=== PATIENT | female | born 1960 | race Caucasian/White ===

== ENCOUNTER → 2018-09-06 | Outpatient (CLI) | payer BC ==
--- NOTE | 2018-09-06 15:09 | Diagnostic Imaging Report ---
INDICATION: Left wrist pain and injury. TIME OF EXAM 2:42 PM FINDINGS: Three views of the left wrist were obtained. The distal radius and ulna are intact. The carpus is intact. Metacarpals are unremarkable. No fractures are seen. IMPRESSION: No acute bony abnormality is detected. Dictated by: Dictated on workstation # [id number]
== END ==
LOC: RAD FS 14:40
PROVIDERS: ATTEND Nurse Practitioner
DX: S69.92XA Unspecified injury of left wrist, hand and finger(s), initial encounter (principal)
CPT/HCPCS: 73110

== ENCOUNTER → 2018-09-20 | Outpatient (CLI) | payer BC ==
--- NOTE | 2018-09-20 09:09 | Diagnostic Imaging Report ---
Indication: Fall and wrist pain. Time of exam: 8:47 AM Comparison: 09/06/2018. Three views of the left wrist were obtained. Distal radius is intact. There is a small lucency at the ulnar styloid, indeterminate. This could conceivably represent a healing fracture. Correlation to pain on the ulnar side of the wrist is recommended. By history it states patient has lateral wrist pain which would be the radius side of the wrist. The carpus appears intact. There are some mild degenerative changes at the triscaphe and first CMC joints. Metacarpals are intact. Impression: Questionable lucency at the ulnar styloid which could represent a healing fracture. There is no displacement. Correlation of pain on the ulnar side it is recommended. Dictated by: Dictated on workstation # [id number]
== END ==
LOC: RAD FS 08:44
PROVIDERS: ATTEND Nurse Practitioner
DX: M25.532 Pain in left wrist (principal); W19.XXXA Unspecified fall, initial encounter
CPT/HCPCS: 73110

== ENCOUNTER → 2019-08-04 | Outpatient (CLI) | payer BC ==
--- NOTE | 2019-08-04 16:02 | Diagnostic Imaging Report ---
EXAMINATION: Chest 2 view HISTORY: Cough. Wheezing. COMPARISON: None available. FINDINGS: The lung volumes are normal. No focal consolidation is seen. Mild bronchial thickening is seen in the perihilar regions. No large pleural effusion or pneumothorax is seen. The cardiomediastinal silhouette is normal in size and contour. No acute osseous abnormality is seen. IMPRESSION: 1. Mild bronchial wall thickening, which can be seen with bronchitis/bronchiolitis. No focal consolidations. Dictated by: Dictated on workstation # [id number]
== END ==
LOC: RAD FS 15:40
PROVIDERS: ATTEND Nurse Practitioner Family
DX: R05 Cough (principal); R06.2 Wheezing
CPT/HCPCS: 71046

== ENCOUNTER → 2020-06-28 | Outpatient (CLI) | payer BC ==
--- NOTE | 2020-06-28 16:32 | Diagnostic Imaging Report ---
INDICATION: Left wrist pain AP, oblique, and lateral views of the left wrist are obtained. COMPARISON is made to 09/20/2018 No acute fracture or acute bony abnormality seen. There is some irregularity of the ulnar styloid which appears chronic compared to the prior study. IMPRESSION: Chronic irregularity of ulnar styloid similar to the prior study of 09/20/2018. No acute process visualized. Dictated by: Dictated on workstation # [id number]
== END ==
LOC: RAD FS 10:13
PROVIDERS: ATTEND Nurse Practitioner
DX: M25.832 Other specified joint disorders, left wrist (principal)
CPT/HCPCS: 73110

== ENCOUNTER → 2020-07-04 | Outpatient (CLI) | payer BC ==
[~2020-07-04] VITALS: Ht 160 cm; Wt 96.8 kg
[~2020-07-04] MED LIST: CATHETER FLUSH 10 ML SYR IV PRN; GADOBUTROL 7.5 MMOL/7.5 ML (GADAVIST) VIAL IV ONE; IOHEXOL 300 MG/ML 50 ML (OMNIPAQUE 300) VIAL IV ONE
--- NOTE | 2020-07-04 11:29 | Diagnostic Imaging Report ---
Left wrist arthrogram INDICATION: Wrist pain Following aseptic preparation skin and administration of local anesthesia a 25-gauge needle was advanced into the radiocarpal joint. Approximately 3 mL of a mixture of sodium chloride Omnipaque 300 and Gadavist was infused. The patient tolerated procedure well and was sent to the MR suite in good condition. IMPRESSION: There has been successful injection of the radiocarpal joint. MRI is pending for further study. Dictated by: Dictated on workstation # [id number]
--- NOTE | 2020-07-04 12:19 | Diagnostic Imaging Report ---
PROCEDURE: MRI left joint upper extremity with contrast. TECHNIQUE: Multiplanar, multisequence contrast-enhanced MRI of the left upper extremity was accomplished. INDICATION: Wrist pain. COMPARISON: There are no prior MRI examinations available for comparison. The plain film examination of the left wrist performed on 06/28/2020 failed to show any sign of an acute bony abnormality. There was chronic irregularity of the ulnar styloid. FINDINGS: On the coronal STIR series of this exam, there does appear to be cystic degeneration of the ulnar styloid. I suspect that this is due to degenerative disease. There is also edema/inflammation of the soft tissues in this area and along the medial aspect of the triangular fibrocartilage. For the most part, the triangular fibrocartilage seems to be intact; however, the medial margin is irregular and this does suggest a small partial tear. There is also some fluid/contrast within the distal radioulnar joint and this is indirect evidence that there is a partial tear of the triangular fibrocartilage as well. There is also edema/inflammation of the extensive carpi ulnaris tendon as it courses past the ulnar styloid. There is a vague area of altered signal within the tendon belly itself in this region. This may represent edema/inflammation or perhaps a long-standing partial tear of the tendon. The scapholunate ligament seems to be intact. There is no abnormal signal arising from the osseous structures to suggest bone edema or fracture. There is no sign of avascular necrosis either. There are small cysts within the lunate and capitate bones. These are most likely degenerative in nature. There is also a small 3.5 mm cyst near the medial articulation of the hamate bone and the triquetrum. This could represent a small ganglion cyst. The other major ligaments and tendons are intact. IMPRESSION: 1. There is edema/inflammation of the soft tissues along the medial aspect of the wrist. There also appears to be a small partial tear of the triangular fibrocartilage. The area of abnormal signal within the extensor carpi ulnaris tendon also suggests either prior trauma or a partial tear. Cystic degeneration of the ulnar styloid is noted as well. 2. There is no acute bony abnormality appreciated. 3. There is question of a small ganglion cyst near the medial articulation of the triquetrum and hamate bone. Dictated by: Dictated on workstation # [id number]
== END ==
LOC: RAD 09:45
PROVIDERS: ATTEND Nurse Practitioner
DX: S63.592D Other specified sprain of left wrist, subsequent encounter (principal); X58.XXXD Exposure to other specified factors, subsequent encounter
CPT/HCPCS: 25246; 73115; 73222

== ENCOUNTER → 2020-10-18 | Outpatient (CLI) | payer BC ==
--- NOTE | 2020-10-18 15:31 | Diagnostic Imaging Report ---
INDICATION: Right thumb pain. COMPARISON: None. FINDINGS: Three views of the right thumb were obtained and show no fractures, dislocations, or other acute bony abnormalities. Joint spaces are well maintained throughout. The soft tissues appear unremarkable. No radiopaque foreign bodies are identified. IMPRESSION: Unremarkable radiographic exam of the right thumb. Dictated by: Dictated on workstation # [id number]
== END ==
LOC: RAD FS 15:12
PROVIDERS: ATTEND Nurse Practitioner
DX: M79.644 Pain in right finger(s) (principal)
CPT/HCPCS: 73140

== ENCOUNTER 2021-01-04 13:51 | Emergency (ER) | payer BC ==
[~2021-01-04] VITALS: Ht 155 cm; Wt 95.0 kg
[2021-01-04] MEDS ORDERED: LORazepam INJ 2 MG/ML (ATIVAN) VIAL IVP STA ×2 (14:13→15:55)
[2021-01-04] MEDS ORDERED: RX-ALBUTEROL INHALER (VENTOLIN HFA) 18 GM IH PRN (14:15)
[2021-01-04] MEDS ORDERED: NS IV 1000 ML 1,000 ML IV SCH (14:15)
--- NOTE | 2021-01-04 14:21 | ED General ---
General Chief Complaint: Respiratory Problems Stated Complaint: SOB; COUGH; COVID+ Source of Information: Patient History of Present Illness Date Seen by Provider: Jan 04, 2021 Time Seen by Provider: 13:56 Initial Comments 60-year-old female presenting from home due to increased cough and shortness of breath. She is feeling dizzy and lightheaded. She states that she was diagnosed with Covid a week ago. On Thursday she was started on a Z-Henrik and steroids. She has been having diarrhea as well. Today she started feeling dizzy and lightheaded. She is anxious and coughing. She becomes more panicked when she starts to cough. She does not bring anything up when she does cough. She gets easily choked when she coughs. She has been running a fever up to 102 Fahrenheit per patient report. Her last temperature at that level was yesterday. She has not been taking anything to loosen her cough or thin it out. She states she is not monitoring her sugars. She denies any burning or pain w ith urination. Associated Systoms: Cough; No Diaphoresis; Fever/Chills, Malaise; No Nausea/Vomiting, No Seizure; Shortness of Air, Weakness Allergies and Home Medications Allergies Coded Allergies: No Allergy Information Available (Unverified , 07/04/20) Patient Home Medication List Home Medication List Reviewed: Yes Review of Systems Review of Systems Constitutional: chills, dizziness, fever, malaise, weakness EENTM: nose congestion Respiratory: cough; No hemoptysis; short of breath, wheezing Cardiovascular: No palpitations Gastrointestinal: diarrhea; No nausea, No vomiting Genitourinary: No dysuria Musculoskeletal: other (generalized body aches) Skin: no symptoms reported Psychiatric/Neurological: Anxiety Hematologic/Lymphatic: Denies Blood Clots Past Wzntfcb-Ulrefr-Ejlwto Hx Patient Social History Tobacco Use?: No Use of E-Cig and/or Vaping dev: No Substance use?: No Alcohol Use?: No Pt feels they are or have been: No Past Medical History Surgery/Hospitalization HX: diabetic Surgeries: No Respiratory: No Cardiac: No Neurological: No Genitourinary: No Gastrointestinal: No Musculoskeletal: No Endocrine: Yes Diabetes, Non-Insulin dep Physical Exam Vital Signs Vital Signs - First Documented 01/04/21 13:55 Temp 36.4 Pulse 103 Resp 20 B/P (MAP) 192/90 (124) Pulse Ox 100 O2 Delivery Room Air Capillary Refill : Height, Weight, BMI Height: '" Weight: lbs. oz. kg; 37.81 BMI Method: General Appearance: Anxious, Obese HEENT: PERRL/EOMI, Pharynx Normal Neck: Full Range of Motion, Normal Inspection, Non Tender, Supple Respiratory: No Accessory Muscle Use, No Respiratory Distress, Decreased Breath Sounds, Wheezing Cardiovascular: Regular Rate, Rhythm, Normal Peripheral Pulses Gastrointestinal: Normal Bowel Sounds, No Pulsatile Mass, Non Tender, Soft Rectal: Deferred Extremity: Normal Capillary Refill, Normal Inspection, No Pedal Edema Neurologic/Psychiatric: Alert, Oriented x3, Other (anxious) Skin: Normal Color, Warm/Dry Focused Exam Lactate Level 01/04/21 14:00: Lactic Acid Level 1.99 Lactic Acid Level Laboratory Tests Test 01/04/21 14:00 Lactic Acid Level 1.99 MMOL/L (0.50-2.00) Progress/Results/Core Measures Suspected Sepsis SIRS Temperature: Pulse: Respiratory Rate: Laboratory Tests 01/04/21 14:00: White Blood Count 4.0L Blood Pressure / Mean: 01/04/21 14:00: Lactic Acid Level 1.99 Laboratory Tests 01/04/21 14:00: Creatinine 0.60, INR Comment 0.9, Platelet Count 153, Total Bilirubin 0.3 Results/Orders Lab Results Laboratory Tests Test 01/04/21 14:00 01/04/21 14:34 01/04/21 15:46 01/04/21 17:04 Range/Units White Blood Count 4.0 L 4.3-11.0 10^3/uL Red Blood Count 4.42 4.35-5.85 10^6/uL Hemoglobin 13.0 11.5-16.0 G/DL Hematocrit 40 35-52 % Mean Corpuscular Volume 90 80-99 FL Mean Corpuscular Hemoglobin 29 25-34 PG Mean Corpuscular Hemoglobin Concent 33 32-36 G/DL Red Cell Distribution Width 12.8 10.0-14.5 % Platelet Count 153 130-400 10^3/uL Mean Platelet Volume 10.8 H 7.4-10.4 FL Immature Granulocyte % (Auto) 1 % Neutrophils (%) (Auto) 78 H 42-75 % Lymphocytes (%) (Auto) 18 12-44 % Monocytes (%) (Auto) 4 0-12 % Eosinophils (%) (Auto) 0 0-10 % Basophils (%) (Auto) 0 0-10 % Neutrophils # (Auto) 3.1 1.8-7.8 X 10^3 Lymphocytes # (Auto) 0.7 L 1.0-4.0 X 10^3 Monocytes # (Auto) 0.1 0.0-1.0 X 10^3 Eosinophils # (Auto) 0.0 0.0-0.3 10^3/uL Basophils # (Auto) 0.0 0.0-0.1 10^3/uL Immature Granulocyte # (Auto) 0.0 0.0-0.1 10^3/uL Neutrophils % (Manual) 79 % Lymphocytes % (Manual) 8 % Monocytes % (Manual) 2 % Band Neutrophils 4 % Atypical Lymphocytes 7 % Blood Morphology Comment NORMAL Prothrombin Time 12.2 12.2-14.7 SEC INR Comment 0.9 0.8-1.4 Activated Partial Thromboplast Time 24 24-35 SEC D-Dimer 1.38 H 0.00-0.49 UG/ML Sodium Level 139 135-145 MMOL/L Potassium Level 4.1 3.6-5.0 MMOL/L Chloride Level 103 98-107 MMOL/L Carbon Dioxide Level 23 21-32 MMOL/L Anion Gap 13 5-14 MMOL/L Blood Urea Nitrogen 16 7-18 MG/DL Creatinine 0.60 0.60-1.30 MG/DL Estimat Glomerular Filtration Rate > 60 BUN/Creatinine Ratio 27 Glucose Level 479 *H 70-105 MG/DL Lactic Acid Level 1.99 0.50-2.00 MMOL/L Calcium Level 8.7 8.5-10.1 MG/DL Corrected Calcium 8.9 8.5-10.1 MG/DL Total Bilirubin 0.3 0.1-1.0 MG/DL Aspartate Amino Transf (AST/SGOT) 34 5-34 U/L Alanine Aminotransferase (ALT/SGPT) 12 0-55 U/L Alkaline Phosphatase 73 40-136 U/L Troponin I < 0.30 <0.30 NG/ML C-Reactive Protein 5.23 H <0.50 MG/DL Total Protein 7.5 6.4-8.2 GM/DL Albumin 3.7 3.2-4.5 GM/DL Blood Gas Puncture Site RT RAD Blood Gas Patient Temperature UNK Arterial Blood pH 7.45 H 7.37-7.43 Arterial Blood Partial Pressure CO2 39 35-45 MMHG Arterial Blood Partial Pressure O2 61 L 79-93 MMHG Arterial Blood HCO3 27 23-27 MMOL/L Arterial Blood Total CO2 28.3 21.0-31.0 MMOL/L Arterial Blood Oxygen Saturation 92 L 94-100 % Arterial Blood Base Excess 3.0 H -2.5-2.5 MMOL/L Prabhjot Test YES-POS Blood Gas Ventilator Setting NO Blood Gas Inspired Oxygen ROOM AIR Urine Color YELLOW Urine Clarity SLT CLOUDY Urine pH 6.0 5-9 Urine Specific [place] 1.010 L 1.016-1.022 Urine Protein 1+ H NEGATIVE Urine Glucose (UA) 3+ H NEGATIVE Urine Ketones TRACE H NEGATIVE Urine Nitrite POSITIVE H NEGATIVE Urine Bilirubin NEGATIVE NEGATIVE Urine Urobilinogen 0.2 < = 1.0 MG/DL Urine Leukocyte Esterase NEGATIVE NEGATIVE Urine RBC (Auto) TRACE H NEGATIVE Urine RBC NONE /HPF Urine WBC 5-10 H /HPF Urine Squamous Epithelial Cells 0-2 /HPF Urine Crystals NONE /LPF Urine Bacteria LARGE H /HPF Urine Casts NONE /LPF Urine Mucus NEGATIVE /LPF Urine Culture Indicated YES Glucometer 260 H 70-110 MG/DL My Orders Orders - SORIN DELGADO MD Monitor-Rhythm Ecg Trace Only (01/04/21 14:10) Ed Iv/Invasive Line Start (01/04/21 14:10) Cbc With Automated Diff (01/04/21 14:10) Comprehensive Metabolic Panel (01/04/21 14:10) Crp Fs (01/04/21 14:10) Troponin I Fs (01/04/21 14:10) Protime With Inr (01/04/21 14:10) Partial Thromboplastin Time (01/04/21 14:10) Ekg Tracing (01/04/21 14:10) Arterial Blood Gas (01/04/21 14:10) Ns Iv 1000 Ml (Sodium Chloride 0.9%) (01/04/21 14:15) Fibrin Degradation Products (01/04/21 14:10) Blood Culture (01/04/21 14:10) Lactic Acid Analyzer (01/04/21 14:10) Rx-Albuterol Inhaler (Rx-Ventolin Hfa) (01/04/21 14:15) Chest 1 View Ap/Pa Only (01/04/21 14:13) Lorazepam Injection (Ativan Injection) (01/04/21 14:13) Ua Culture If Indicated (01/04/21 14:42) Manual Differential (01/04/21 14:00) Iohexol Injection (Omnipaque 350 Mg/Ml 1 (01/04/21 15:15) Received Contrast (Hold Metformin- Contr (01/04/21 15:15) Sodium Chloride Flush (Catheter Flush Sy (01/04/21 15:15) Ns (Ivpb) (Sodium Chloride 0.9% Ivpb Bag (01/04/21 15:15) Ct Angio Chest W (01/04/21 15:30) Ns Iv 1000 Ml (Sodium Chloride 0.9%) (01/04/21 15:30) Insulin (Regular) Human (Novolin R (Per (01/04/21 15:30) Lorazepam Injection (Ativan Injection) (01/04/21 15:55) Lorazepam Injection (Ativan Injection) (01/04/21 15:57) Urine Culture (01/04/21 15:46) Nursing Communication (Order) (01/04/21 16:06) Medications Given in ED Current Medications Medications Dose Ordered Sig/Jeannie Route Start Time Stop Time Status Last Admin Dose Admin Albuterol Sulfate 2 PUFFS IH Q4H PRN wheezing RTQ4HR PRN IH 01/04/21 14:15 01/04/21 17:07 DC 01/04/21 14:25 1 GM Iohexol 125 ml ONCE ONCE IV 01/04/21 15:15 01/04/21 15:16 DC 01/04/21 16:15 125 ML Sodium Chloride 10 ml NEEDED PRN IV 01/04/21 15:15 01/04/21 17:07 DC 01/04/21 16:15 10 ML Sodium Chloride 100 ml ONCE ONCE IV 01/04/21 15:15 01/04/21 15:16 DC 01/04/21 16:15 100 ML Vital Signs/I&O 01/04/21 01/04/21 13:55 17:06 Temp 36.4 36.4 Pulse 103 82 Resp 20 16 B/P (MAP) 192/90 (124) 162/76 Pulse Ox 100 100 O2 Delivery Room Air Room Air Capillary Refill : Progress Note #1: Progress Note check labs, CXR, ECG, ABG, blood cultures with lactic acid. Patient seems very anxious so will give Ativan 1 mg IV. NS 1 Liter bolus for hydration. try albuterol inhaler for cough/shortness of breath Progress Note #2: Progress Note Labs appear stable without acute significant anomaly other than high glucose and CRP with elevated D-dimer. Her pain is improved with treatment here in the ED. Her chest x-ray shows lateral changes suggestive of COVID-19. Her oxygen saturation continues to be 99-100% on room air. Advised patient that with the D-dimer slightly elevated will perform a CT angiogram to evaluate for pulmonary embolism or worsening Covid signs not seen on the plain film. Progress Note #3: Progress Note Patient's glucose improved after fluids and insulin. Her IV did infiltrate when flushing with saline after the CT angiogram. The CT chest did not demonstrate any definite pulmonary embolism but she did have diffuse infiltrates and inflammation secondary to Covid. Patient is taking azithromycin which would treat for pneumonia or atypical bacterial source. Will add on Mucinex and the albuterol inhaler with spacer. Counseled to follow-up with clinic and check back with ER or hospital if worsening symptoms. Advised for her Diarrhea she could take Imodium if needed to slow it down, otherwise use fiber to bulk her stools and make sure she is drinking fluid enough to stay hydrated from her fluid loss due to diarrhea. ECG Initial ECG Impression Date: Jan 04, 2021 Initial ECG Impression Time: 14:38 Initial ECG Rate: 87 Initial ECG Rhythm: Normal Sinus Initial ECG Comparisson: No Previous ECG Available Comment Normal sinus rhythm with a heart rate of 87 bpm. PA interval 130 ms. Left anterior fascicular block. No acute ST elevation. There is some baseline wander. QT interval 374 ms with a QTc interval 450 ms. There is no prior tr acing available for comparison. Diagnostic Imaging Diagonstic Imaging: Xray Plain Films/CT/US/NM/MRI: chest Comments NAME: MANGO RENAE [facility] REC#: [id number] PT STATUS: REG ER : 1960 PHYSICIAN: SORIN DELGADO MD ADMIT DATE: 01/04/21/ER FS Draft Date of Exam:01/04/21 CT ANGIO CHEST W PROCEDURE: CT angiography of the chest with contrast. TECHNIQUE: Multiple contiguous axial images were obtained through the chest after uneventful bolus administration of intravenous contrast. 3D reconstructed CTA MIP acquisitions were also performed. Auto Exposure Controls were utilized during the CT exam to meet ALARA standards for radiation dose reduction. DATE: January 04, 2021. COMPARISON: Chest radiograph January 04, 2021. INDICATION: 60-year-old female, cough and shortness of breath. FINDINGS: There is multifocal patchy bilateral lung consolidation with additional areas of predominantly linear opacification. There is no identified pulmonary nodule. There is no lung mass. There is no pneumothorax. There is no pleural effusion. There is no identified pulmonary embolus. There are motion limitations of the study. The heart is not enlarged. There is no pericardial effusion. There is no identified abnormally enlarged mediastinal, hilar or axillary lymph node meeting CT size criteria for adenopathy. The patient is status post cholecystectomy. There is no identified acute bony abnormality. There is a benign vertebral body hemangioma at the level of T10. IMPRESSION: CT chest: 1. Multifocal patchy bilateral lung consolidation which would be most consistent with provided history of Covid 19 infection and multifocal pneumonia/pneumonitis. There are likely components of atelectasis present. 2. No identified pulmonary embolus and motion limited assessment. Dictated on workstation # [id number] Dict: 01/04/21 1621 Trans: 01/04/21 1635 [facility] [id number] Interpreted by: ALEK MOORE MD Electronically signed by: Diagonstic Imaging: CT Plain Films/CT/US/NM/MRI: chest Comments NAME: MANGO RENAE [facility] REC#: [id number] PT STATUS: REG ER : 1960 PHYSICIAN: SORIN DELGADO MD ADMIT DATE: 01/04/21/ER FS Draft Date of Exam:01/04/21 CT ANGIO CHEST W PROCEDURE: CT angiography of the chest with contrast. TECHNIQUE: Multiple contiguous axial images were obtained through the chest after uneventful bolus administration of intravenous contrast. 3D reconstructed CTA MIP acquisitions were also performed. Auto Exposure Controls were utilized during the CT exam to meet ALARA standards for radiation dose reduction. DATE: January 04, 2021. COMPARISON: Chest radiograph January 04, 2021. INDICATION: 60-year-old female, cough and shortness of breath. FINDINGS: There is multifocal patchy bilateral lung consolidation with additional areas of predominantly linear opacification. There is no identified pulmonary nodule. There is no lung mass. There is no pneumothorax. There is no pleural effusion. There is no identified pulmonary embolus. There are motion limitations of the study. The heart is not enlarged. There is no pericardial effusion. There is no identified abnormally enlarged mediastinal, hilar or axillary lymph node meeting CT size criteria for adenopathy. The patient is status post cholecystectomy. There is no identified acute bony abnormality. There is a benign vertebral body hemangioma at the level of T10. IMPRESSION: CT chest: 1. Multifocal patchy bilateral lung consolidation which would be most consistent with provided history of Covid 19 infection and multifocal pneumonia/pneumonitis. There are likely components of atelectasis present. 2. No identified pulmonary embolus and motion limited assessment. Dictated on workstation # [id number] Dict: 01/04/21 1621 Trans: 01/04/21 1635 [facility] [id number] Interpreted by: ALEK MOORE MD Electronically signed by: Departure Impression Primary Impression: Respiratory tract infection due to 2019 novel coronavirus Additional Impressions: Steroid-induced hyperglycemia Cough in adult Diarrhea Qualified Codes: R19.7 - Diarrhea, unspecified Disposition: 01 HOME, SELF-CARE Condition: Stable Departure-Patient Inst. Decision time for Depature: 16:55 Referrals: LEONEL PARK MD (PCP/Family) Primary Care Physician Patient Instructions: COVID-19 (DC), Cough, Adult ED, High Blood Sugar, Adult ED, How to Use a Metered Dose Inhaler ED, How to Use a Spacer, Recovery After COVID-19 Add. Discharge Instructions: Stay well hydrated and drink plenty of fluids Use Mucinex to help loosen and thin out your mucus and secretions. Use spacer with inhaler to take 2 puffs every 4 hours as needed for cough and shortness of breath. Watch your diet and sugars as they will run higher while on steroid and fighting infection. All discharge instructions reviewed with patient and/or family. Voiced understanding. SORIN DELGADO MD Jan 04, 2021 14:21
--- NOTE | 2021-01-04 14:37 | Diagnostic Imaging Report ---
EXAMINATION: Chest 1 view HISTORY: Shortness of breath, COVID 19 COMPARISON: None available. FINDINGS: Vague airspace opacities in the left base. No pleural effusion or pneumothorax. Heart size is normal. IMPRESSION: 1. Vague airspace opacity left base which may be related to COVID 19 pneumonia. Dictated by: Dictated on workstation # [id number]
[2021-01-04 14:40] LABS: ABG OXYGEN SATURATION 92 % (94-100); ABG PCO2 39 MMHG (35-45); ABG PH 7.45 (7.37-7.43); ABG PO2 61 MMHG (79-93); ABG TCO2 28.3 MMOL/L (21.0-31.0)
[2021-01-04 14:41] LABS: ALLENS TEST YES-POS; INSPIRED O2 ROOM AIR; VENTILATOR NO
[2021-01-04 14:42] LABS: INR 0.9 (0.8-1.4); PROTHROMBIN TIME PATIENT 12.2 SEC (12.2-14.7)
[2021-01-04 14:43] LABS: BASOPHILS % (AUTO) 0 % (0-10); EOSINOPHILS % (AUTO) 0 % (0-10); HEMATOCRIT 40 % (35-52); LYMPHOCYTES # (AUTO) 0.7 X 10^3 (1.0-4.0); LYMPHOCYTES % (AUTO) 18 % (12-44); MEAN CORPUSCULAR HEMOGLOBIN 29 PG (25-34); MEAN CORPUSCULAR HGB CONC 33 G/DL (32-36); MEAN CORPUSCULAR VOLUME 90 FL (80-99); MEAN PLATELET VOLUME 10.8 FL (7.4-10.4); MONOCYTES # (AUTO) 0.1 X 10^3 (0.0-1.0); MONOCYTES % (AUTO) 4 % (0-12); NEUTROPHILS # (AUTO) 3.1 X 10^3 (1.8-7.8); NEUTROPHILS % (AUTO) 78 % (42-75); PLATELET COUNT 153 10^3/uL (130-400)
[2021-01-04 14:45] LABS: CHLORIDE 103 MMOL/L (98-107); POTASSIUM 4.1 MMOL/L (3.6-5.0); SODIUM 139 MMOL/L (135-145)
[2021-01-04 14:46] LABS: ALANINE AMINOTRANSFERASE 12 U/L (0-55); ALBUMIN 3.7 GM/DL (3.2-4.5); ALKALINE PHOSPHATASE 73 U/L (40-136); BILIRUBIN,TOTAL 0.3 MG/DL (0.1-1.0); BUN/CREATININE RATIO 27; CALCIUM 8.7 MG/DL (8.5-10.1); CARBON DIOXIDE 23 MMOL/L (21-32); GFR ESTIMATED > 60; TOTAL PROTEIN 7.5 GM/DL (6.4-8.2)
[2021-01-04 14:47] LABS: GLUCOSE 479 MG/DL (70-105)
[2021-01-04 15:10] LABS: BAND NEUTROPHILS 4 %; LYMPHOCYTES % (MANUAL) 8 %; MONOCYTES % (MANUAL) 2 %; NEUTROPHILS % (MANUAL) 79 %
[2021-01-04 15:11] LABS: ATYPICAL LYMPHOCYTES 7 %; RBC MORPH NORMAL
[2021-01-04] MEDS ORDERED: IOHEXOL 350 MG/ML 150 ML (OMNIPAQUE 350) VIAL IV ONE (15:15)
[2021-01-04] MEDS ORDERED: CATHETER FLUSH 10 ML SYR IV PRN (15:15)
[2021-01-04] MEDS ORDERED: NS 100 ML (IVPB) BAG IV ONE (15:15)
[2021-01-04] MEDS ORDERED: HOLD METFORMIN - RECEIVED CONTRAST 20 ML VIAL IV SCH (15:15)
[2021-01-04] MEDS ORDERED: NS IV 1000 ML 1,000 ML IV STA (15:30)
[2021-01-04] MEDS ORDERED: inSUlin (REGULAR) HUMAN 1 UNIT/0.01 ML (CHARGE PER UNIT) IV STA (15:30)
[2021-01-04] MEDS ORDERED: LORazepam INJ 2 MG/ML (ATIVAN) VIAL ONE (15:57)
[2021-01-04 16:00] LABS: COLOR,URINE YELLOW
[2021-01-04 16:01] LABS: BACTERIA,URINE LARGE /HPF; BILIRUBIN,URINE NEGATIVE (NEGATIVE); CLARITY,URINE SLT CLOUDY; GLUCOSE, URINE (UA) 3+ (NEGATIVE); KETONES,URINE TRACE (NEGATIVE); LEUKOCYTE ESTERASE ,URINE NEGATIVE (NEGATIVE); NITRITE,URINE POSITIVE (NEGATIVE); PROTEIN,URINE 1+ (NEGATIVE); SQUAMOUS EPITHELIAL CELL,UR 0-2 /HPF
--- NOTE | 2021-01-04 16:36 | Diagnostic Imaging Report ---
PROCEDURE: CT angiography of the chest with contrast. TECHNIQUE: Multiple contiguous axial images were obtained through the chest after uneventful bolus administration of intravenous contrast. 3D reconstructed CTA MIP acquisitions were also performed. Auto Exposure Controls were utilized during the CT exam to meet ALARA standards for radiation dose reduction. DATE: January 04, 2021. COMPARISON: Chest radiograph January 04, 2021. INDICATION: 60-year-old female, cough and shortness of breath. FINDINGS: There is multifocal patchy bilateral lung consolidation with additional areas of predominantly linear opacification. There is no identified pulmonary nodule. There is no lung mass. There is no pneumothorax. There is no pleural effusion. There is no identified pulmonary embolus. There are motion limitations of the study. The heart is not enlarged. There is no pericardial effusion. There is no identified abnormally enlarged mediastinal, hilar or axillary lymph node meeting CT size criteria for adenopathy. The patient is status post cholecystectomy. There is no identified acute bony abnormality. There is a benign vertebral body hemangioma at the level of T10. IMPRESSION: CT chest: 1. Multifocal patchy bilateral lung consolidation which would be most consistent with provided history of Covid 19 infection and multifocal pneumonia/pneumonitis. There are likely components of atelectasis present. 2. No identified pulmonary embolus and motion limited assessment. Dictated by: Dictated on workstation # [id number]
[2021-01-04 17:06] VITALS: BP 162/76
== END 2021-01-04 17:07 | disposition home or self-care (01) ==
LOC: EDUNIT# 13:51 → ER FS 13:54
DX: U07.1 COVID-19 (principal); T38.0X5A Adverse effect of glucocorticoids and synthetic analogues, initial encounter; E09.65 Drug or chemical induced diabetes mellitus with hyperglycemia; R79.1 Abnormal coagulation profile; R79.82 Elevated C-reactive protein (CRP); E66.9 Obesity, unspecified; Z68.37 Body mass index [BMI] 37.0-37.9, adult; Z73.0 Burn-out
CPT/HCPCS: 36415; 71045; 71275; 80053; 81000; 82805; 82947; 83605; 84484; 85007; 85027; 85379; 85610; 85730; 86141; 87040; 87077; 87088; 87186; 93005; 93041; 94640

== ENCOUNTER 2021-01-06 19:56 | Inpatient (IN) | payer BC ==
[~2021-01-06] VITALS: Ht 160 cm; Wt 107.3 kg
--- NOTE | 2021-01-06 20:35 | ED General ---
General Chief Complaint: Respiratory Problems Stated Complaint: SOB Nursing Triage Note: Pt tested positive for Covid 10 days ago and was seen 2 days ago for sob. Pt was discharged home on Thursday. Pt returns tonight with increased shortness of breath and chest pain Source of Information: Patient, Old Records History of Present Illness Date Seen by Provider: Jan 06, 2021 Time Seen by Provider: 20:00 Initial Comments 60-year-old female presenting to the emergency department with increasing shortness of breath since seen on Thursday. She was diagnosed with Covid approximately 10 days ago. She was seen Thursday for diarrhea and shortness of breath. However at that time her oxygen saturation was 100%. Today her oxygen was 78%. She states the diarrhea has slowed down since Thursday. She has decreased appetite still. Since she was having more shortness of breath she came in to be rechecked tonight. She had a negative CT angiogram on Thursday as well as blood work and chest x-ray. The test showed evidence of Covid and pulmonary infiltrate. Patient was already on steroids and Zithromax. Given an inhaler with spacer to help with her breathing. Associated Systoms: Chest Pain, Cough, Diaphoresis, Fever/Chills, Headaches, Loss of Appetite, Malaise; No Rash, No Seizure; Shortness of Air; No Syncope; Weakness (general) Allergies and Home Medications Allergies Coded Allergies: No Allergy Information Available (Unverified , 07/04/20) Patient Home Medication List Home Medication List Reviewed: Yes Review of Systems Review of Systems Constitutional: chills, dizziness, fever, malaise, weakness EENTM: nose congestion Respiratory: cough, short of breath Cardiovascular: chest pain (with coughing) Gastrointestinal: diarrhea, loss of appetite Genitourinary: decreased output Musculoskeletal: other (generalized body aches and pains) Skin: No rash Psychiatric/Neurological: Anxiety, Headache, Weakness Hematologic/Lymphatic: Denies Blood Clots, Denies Easy Bleeding, Denies Easy Bruising Past Rzonkpw-Ajcqvb-Exrfns Hx Patient Social History Tobacco Use?: No Use of E-Cig and/or Vaping dev: No Substance use?: No Alcohol Use?: No Pt feels they are or have been: No Past Medical History Surgery/Hospitalization HX: diabetic Surgeries: No Respiratory: No Cardiac: No Neurological: No Genitourinary: No Gastrointestinal: No Musculoskeletal: No Endocrine: Yes Diabetes, Non-Insulin dep Physical Exam Vital Signs Vital Signs - First Documented 01/06/21 01/06/21 20:02 21:20 Temp 37.8 Pulse 92 Resp 20 B/P (MAP) 205/85 (125) Pulse Ox 78 O2 Delivery Room Air O2 Flow Rate 6.00 Capillary Refill : Less Than 3 Seconds Height, Weight, BMI Height: '" Weight: lbs. oz. 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 Norm as Tested, Other (anxious) Skin: Warm/Dry Progress/Results/Core Measures Suspected Sepsis SIRS Temperature: Pulse: 92 Respiratory Rate: 20 Laboratory Tests 01/06/21 20:14: White Blood Count 5.7 Blood Pressure 205 /85 Mean: 125 Laboratory Tests 01/06/21 20:14: Creatinine 0.56L, INR Comment 1.0, Platelet Count 204, Total Bilirubin 0.4 Results/Orders Lab Results Laboratory Tests Test 01/06/21 20:14 01/06/21 20:40 Range/Units White Blood Count 5.7 4.3-11.0 10^3/uL Red Blood Count 4.34 L 4.35-5.85 10^6/uL Hemoglobin 12.7 11.5-16.0 G/DL Hematocrit 39 35-52 % Mean Corpuscular Volume 90 80-99 FL Mean Corpuscular Hemoglobin 29 25-34 PG Mean Corpuscular Hemoglobin Concent 33 32-36 G/DL Red Cell Distribution Width 12.7 10.0-14.5 % Platelet Count 204 130-400 10^3/uL Mean Platelet Volume 10.4 7.4-10.4 FL Immature Granulocyte % (Auto) 0 % Neutrophils (%) (Auto) 83 H 42-75 % Lymphocytes (%) (Auto) 12 12-44 % Monocytes (%) (Auto) 4 0-12 % Eosinophils (%) (Auto) 0 0-10 % Basophils (%) (Auto) 0 0-10 % Neutrophils # (Auto) 4.7 1.8-7.8 X 10^3 Lymphocytes # (Auto) 0.7 L 1.0-4.0 X 10^3 Monocytes # (Auto) 0.2 0.0-1.0 X 10^3 Eosinophils # (Auto) 0.0 0.0-0.3 10^3/uL Basophils # (Auto) 0.0 0.0-0.1 10^3/uL Immature Granulocyte # (Auto) 0.0 0.0-0.1 10^3/uL Prothrombin Time 13.2 12.2-14.7 SEC INR Comment 1.0 0.8-1.4 Activated Partial Thromboplast Time 25 24-35 SEC Sodium Level 139 135-145 MMOL/L Potassium Level 3.3 L 3.6-5.0 MMOL/L Chloride Level 102 98-107 MMOL/L Carbon Dioxide Level 24 21-32 MMOL/L Anion Gap 13 5-14 MMOL/L Blood Urea Nitrogen 11 7-18 MG/DL Creatinine 0.56 L 0.60-1.30 MG/DL Estimat Glomerular Filtration Rate > 60 BUN/Creatinine Ratio 20 Glucose Level 323 H 70-105 MG/DL Calcium Level 8.9 8.5-10.1 MG/DL Corrected Calcium 9.5 8.5-10.1 MG/DL Total Bilirubin 0.4 0.1-1.0 MG/DL Aspartate Amino Transf (AST/SGOT) 27 5-34 U/L Alanine Aminotransferase (ALT/SGPT) 10 0-55 U/L Alkaline Phosphatase 72 40-136 U/L Troponin I < 0.30 <0.30 NG/ML C-Reactive Protein 8.29 H <0.50 MG/DL Total Protein 7.4 6.4-8.2 GM/DL Albumin 3.3 3.2-4.5 GM/DL Blood Gas Puncture Site LT.RADIAL Blood Gas Patient Temperature 37.8 Arterial Blood pH 7.47 H 7.37-7.43 Arterial Blood Partial Pressure CO2 36 35-45 MMHG Arterial Blood Partial Pressure O2 58 L 79-93 MMHG Arterial Blood HCO3 26 23-27 MMOL/L Arterial Blood Total CO2 27.3 21.0-31.0 MMOL/L Arterial Blood Oxygen Saturation 92 L 94-100 % Arterial Blood Base Excess 2.6 H -2.5-2.5 MMOL/L Prabhjot Test YES-POS Blood Gas Ventilator Setting NO Blood Gas Inspired Oxygen 6L My Orders Orders - SORIN DELGADO MD Monitor-Rhythm Ecg Trace Only (01/06/21 20:31) Cbc With Automated Diff (01/06/21 20:31) Comprehensive Metabolic Panel (01/06/21 20:31) Crp Fs (01/06/21 20:31) Troponin I Fs (01/06/21 20:31) Protime With Inr (01/06/21:) Partial Thromboplastin Time (01/06/21:31) Ekg Tracing (01/06/21:) Arterial Blood Gas (01/06/21:) Ns Iv 1000 Ml (Sodium Chloride 0.9%) (01/06/21 20:45) O2 (01/06/21 20:36) Chest 1 View Ap/Pa Only (01/06/21 20:49) Vital Signs/I&O 01/06/21 01/06/21 20:02 21:20 Temp 37.8 Pulse 92 95 Resp 20 20 B/P (MAP) 205/85 (125) 146/77 Pulse Ox 78 92 O2 Delivery Room Air Nasal Cannula O2 Flow Rate 6.00 Capillary Refill : Less Than 3 Seconds Blood Pressure Mean: 125 Progress Note #1: Progress Note Patient arrived with low O2 sat today in the 70s when she was 100% on Thursday when she was seen. She states that she is continue to worsen in terms of her breathing and still has poor appetite. The diarrhea has improved. We will check her labs and a blood gas as well as repeat chest x-ray. Due to the oxygen requirement we will check with nursing rubber compounder supervisor in [place] to ensure that a bed is available. Progress Note #2: Progress Note Patient is much more comfortable and breathing easier on the supplemental oxygen. She is requiring 6 L to be satting better. Her oxygen saturation on 6 L is 95 to 96% in the room. Blood gas shows pH of 7.47, PCO2 36, PO2 of 58, this was on 6 L by nasal cannula. Her chest x-ray shows worsening infiltrates. Her CBC appears stable. Her chemistry does show elevated glucose consistent with steroids and poor compliance of diabetic management. Discussed with Dr. Carrera for the [facility] service and she accepted the patient to be admitted to the ICU. Anticipate using Vapotherm to help with her oxygenation and breathing. ECG Initial ECG Impression Date: Jan 06, 2021 Initial ECG Impression Time: 20:06 Initial ECG Rate: 90 Initial ECG Rhythm: Normal Sinus Initial ECG Comparisson: Changed Comment Normal sinus rhythm with heart rate 90 bpm. PA interval 121 ms. Prolonged QT interval with a QT interval of 506 ms and a QTc interval of [address] elevation. She has global T wave flattening. There is artifact in the tracing. Appears similar to prior tracings other than now has prolonged QT interval Diagnostic Imaging Diagonstic Imaging: Xray Plain Films/CT/US/NM/MRI: chest Comments [facility] [address], [place] NAME: MANGO RENAE [facility] REC#: [id number] PT STATUS: REG ER : 1960 PHYSICIAN: SORIN DELGADO MD ADMIT DATE: 01/06/21/ER FS Draft Date of Exam:01/06/21 CHEST 1 VIEW AP/PA ONLY INDICATION: Shortness of breath, Covid positive. COMPARISON: 01/04/2021. EXAMINATION: Single view of the chest was obtained. FINDINGS: Cardiac enlargement with increasing interstitial infiltrates, likely pneumonia. There is no pneumothorax or effusion but osseous structures are stable. IMPRESSION: Increasing infiltrates compatible with worsening pneumonia. Dictated on workstation # [id number] Dict: 01/06/212101 Trans: 01/06/212113 [facility] [id number] Interpreted by: IMER HELMS Electronically signed by: Reviewed: Reviewed by Me Departure Communication (Admissions) Time/Spoke to Admitting Phy: 21:[address] Carrera for the [facility] service and she accepted patient to be admitted to the ICU. Anticipate using Vapotherm to help with oxygenation. Notified nursing rubber compounder supervisor so RT can be aware when patient arrives. Impression Primary Impression: Hypoxia Additional Impression: COVID-19 virus infection Disposition: 30 STILL A PATIENT Condition: Critical Admissions Decision to Admit Reason: Admit from ER (General) Decision to Admit/Date: Jan 06, 2021 Time/Decision to Admit Time: 21:12 Departure-Patient Inst. Referrals: LEONEL PARK MD (PCP/Family) Primary Care Physician SORIN DELGADO MD Jan 06, 2021 20:35
[2021-01-06] MEDS ORDERED: NS IV 1000 ML 1,000 ML IV SCH (20:45)
[2021-01-06 21:06] LABS: ABG BASE EXCESS 2.6 MMOL/L (-2.5-2.5); ABG OXYGEN SATURATION 92 % (94-100); ABG PCO2 36 MMHG (35-45); ABG PH 7.47 (7.37-7.43); ABG PO2 58 MMHG (79-93); ABG TCO2 27.3 MMOL/L (21.0-31.0); ALLENS TEST YES-POS; INSPIRED O2 6L; PATIENT TEMP 37.8; VENTILATOR NO
[2021-01-06 21:10] LABS: BUN/CREATININE RATIO 20; CALCIUM 8.9 MG/DL (8.5-10.1); CARBON DIOXIDE 24 MMOL/L (21-32); CHLORIDE 102 MMOL/L (98-107); CREATININE SERUM 0.56 MG/DL (0.60-1.30); GFR ESTIMATED > 60; GLUCOSE 323 MG/DL (70-105); POTASSIUM 3.3 MMOL/L (3.6-5.0); SODIUM 139 MMOL/L (135-145)
[2021-01-06 21:11] LABS: ALANINE AMINOTRANSFERASE 10 U/L (0-55); ALBUMIN 3.3 GM/DL (3.2-4.5); ALKALINE PHOSPHATASE 72 U/L (40-136); BILIRUBIN,TOTAL 0.4 MG/DL (0.1-1.0); TOTAL PROTEIN 7.4 GM/DL (6.4-8.2)
[2021-01-06 21:13] LABS: HEMOGLOBIN 12.7 G/DL (11.5-16.0); MEAN CORPUSCULAR HEMOGLOBIN 29 PG (25-34); WHITE BLOOD COUNT 5.7 10^3/uL (4.3-11.0)
[2021-01-06 21:14] LABS: BASOPHILS % (AUTO) 0 % (0-10); EOSINOPHILS % (AUTO) 0 % (0-10); HEMATOCRIT 39 % (35-52); LYMPHOCYTES # (AUTO) 0.7 X 10^3 (1.0-4.0); LYMPHOCYTES % (AUTO) 12 % (12-44); MEAN CORPUSCULAR HGB CONC 33 G/DL (32-36); MEAN CORPUSCULAR VOLUME 90 FL (80-99); MEAN PLATELET VOLUME 10.4 FL (7.4-10.4); MONOCYTES # (AUTO) 0.2 X 10^3 (0.0-1.0); MONOCYTES % (AUTO) 4 % (0-12); NEUTROPHILS # (AUTO) 4.7 X 10^3 (1.8-7.8); NEUTROPHILS % (AUTO) 83 % (42-75); PLATELET COUNT 204 10^3/uL (130-400)
[2021-01-06 21:16] LABS: PROTHROMBIN TIME PATIENT 13.2 SEC (12.2-14.7)
--- NOTE | 2021-01-06 21:16 | Diagnostic Imaging Report ---
INDICATION: Shortness of breath, Covid positive. COMPARISON: 01/04/2021. EXAMINATION: Single view of the chest was obtained. FINDINGS: Cardiac enlargement with increasing interstitial infiltrates, likely pneumonia. There is no pneumothorax or effusion but osseous structures are stable. IMPRESSION: Increasing infiltrates compatible with worsening pneumonia. Dictated by: Dictated on workstation # [id number]
[2021-01-06] MEDS ORDERED: NS IV 1000 ML 1,000 ML ONE (22:56)
[2021-01-06] MEDS: guaiFENesin SYRUP 100 MG/5 ML 10 ML (ROBITUSSIN SF) PO PRN (23:14)
[2021-01-06] MEDS: NS IV 1000 ML 1,000 ML IV SCH (23:14)
[2021-01-06] MEDS: ACETAMINOPHEN 325 MG TABLET PO PRN (23:14)
[2021-01-06] MEDS ORDERED: RT-ALBUTEROL INHALER HFA (VENTOLIN HFA) 18 GM IH PRN (23:15)
[2021-01-06] MEDS ORDERED: IPRATROPIUM INHALER (ATROVENT) 12.9 GM INH PRN (23:15)
[2021-01-06] MEDS ORDERED: ONDANSETRON 4 MG/5 ML ORAL SOLN (ZOFRAN) 5 ML PO PRN (23:15)
--- NOTE | 2021-01-06 23:17 | Tele-ICU Progress Note ---
Progress Note 60 y/o with SOB, diagnosed with COVID 19 pnaX 10 DAYS. Diarrhea and SOB x thursday Sats 78% Qtc prolongation>500 1. Ac hypoxic resp failure 2/2 COVID PNA On HFNC viewed on camera, No acute distress. Focused Exam Height, Weight, BMI Height: '" Weight: lbs. oz. kg; 39.00 BMI Method: SIDNEY TOVAR MD Jan 06, 2021 23:17
[2021-01-06 23:46] VITALS: BP 205/85
[2021-01-07] MEDS ORDERED: RT-ALBUTEROL INHALER HFA (VENTOLIN HFA) 18 GM IH SCH
[2021-01-07] MEDS ORDERED: RT-ALBUTEROL INHALER HFA (VENTOLIN HFA) 18 GM IH PRN
[2021-01-07] MEDS: RT-ALBUTEROL INHALER HFA (VENTOLIN HFA) 18 GM IH SCH ×6 (02:31→22:18)
[2021-01-07 03:30] LABS: BASOPHILS % (AUTO) 0 % (0-10); EOSINOPHILS % (AUTO) 0 % (0-10); HEMATOCRIT 36 % (35-52); HEMOGLOBIN 11.5 g/dL (11.5-16.0); LYMPHOCYTES % (AUTO) 14 % (12-44); MEAN CORPUSCULAR HEMOGLOBIN 29 pg (25-34); MEAN CORPUSCULAR HGB CONC 32 g/dL (32-36); MEAN CORPUSCULAR VOLUME 91 fL (80-99); MEAN PLATELET VOLUME 10.4 fL (9.0-12.2); MONOCYTES % (AUTO) 4 % (0-12); NEUTROPHILS # (AUTO) 3.8 10^3/uL (1.8-7.8); NEUTROPHILS % (AUTO) 81 % (42-75); PLATELET COUNT 158 10^3/uL (130-400); WHITE BLOOD COUNT 4.7 10^3/uL (4.3-11.0)
[2021-01-07 03:31] LABS: LYMPHOCYTES # (AUTO) 0.7 10^3/uL (1.0-4.0); MONOCYTES # (AUTO) 0.2 10^3/uL (0.0-1.0)
[2021-01-07 03:38] LABS: CHLORIDE 107 MMOL/L (98-107); POTASSIUM 3.2 MMOL/L (3.6-5.0); SODIUM 143 MMOL/L (135-145)
[2021-01-07 03:39] LABS: CALCIUM 8.1 MG/DL (8.5-10.1)
[2021-01-07 03:40] LABS: GLUCOSE 269 MG/DL (70-105)
[2021-01-07 03:41] LABS: CARBON DIOXIDE 23 MMOL/L (21-32)
[2021-01-07 03:43] LABS: PHOSPHORUS 3.1 MG/DL (2.3-4.7)
[2021-01-07 03:44] LABS: BUN/CREATININE RATIO 13; CREATININE SERUM 0.68 MG/DL (0.60-1.30); GFR ESTIMATED > 60
[2021-01-07 03:46] LABS: MAGNESIUM 1.7 MG/DL (1.6-2.4)
[2021-01-07] MEDS: MAGNESIUM 1 GM/100 ML IVPB 100 ML IV SCH ×2 (04:16→05:13)
[2021-01-07] MEDS: KCL 20 MEQ TAB (K-DUR) PO SCH (05:13)
[2021-01-07] MEDS: POTASSIUM CL 10MEQ/50ML IVPB 50 ML IV SCH (05:13)
--- NOTE | 2021-01-07 05:59 | History & Physical-Hospitalist ---
History of Present Illness HPI/Chief Complaint CC: SOB and fever with hypoxia from Covid-19 pneumonia HPI: This is a 60yoWF history of DM who presented to the [facility] ER with complaints of SOB. She was found to have Covid-19 pneumonia. She was unvaccinated against Covid-19. At this current time pt is doing well. Her high sugars will be addressed with Levemir 20 units twice daily first dose now and a sliding scale insulin regimen. Appreciate critical care consultation. Source: patient Exam Limitations: clinical condition Date Seen 01/07/21 Time Seen by a Provider: 11:00 Attending Physician Negar Carrera Pankaj K MD Referring Physician Date of Admission Jan 06, 2021 at 22:49 Home Medications & Allergies Home Medications Reviewed patient Home Medication Reconciliation performed by pharmacy medication reconciliations electronic bench technician and/or nursing. Patients Allergies have been reviewed. Allergies Allergies Coded Allergies No Known Drug Allergies (Unverified01/08/21) Past Fsnswcb-Rpotso-Whihhe Hx Patient Social History Marrital Status: single Tobacco Use?: No Smoking Status: Former Smoker Use of E-Cig and/or Vaping dev: No Substance use?: No Alcohol Use?: No Pt feels they are or have been: No Current Status status: No status: No Advance Directives: No Communicates: Verbally Primary Language: Welsh Preferred Spoken Language: Welsh Is interpretation needed?: No Past Medical History Diabetes, Non-Insulin dep Review of Systems Constitutional: see HPI Respiratory: dyspnea on exertion, short of breath Physical Exam Physical Exam Vital Signs Vital Signs - First Documented 01/06/21 01/06/21 20:02 20:03 Temp 37.8 Pulse 92 Resp 20 B/P (MAP) 205/85 (125) Pulse Ox 78 O2 Delivery Room Air O2 Flow Rate 6.00 FiO2 92 Capillary Refill : Less Than 3 Seconds Height, Weight, BMI Height: '" Weight: lbs. oz. kg; 41.95 BMI Method: General Appearance: Anxious, Mild Distress Eyes: Right Eye Normal Inspection, Right Eye PERRL HEENT: PERRL/EOMI, Normal ENT Inspection, Pharynx Normal, Moist Mucous Membranes Neck: Full Range of Motion, Normal Inspection, Non Tender Respiratory: Chest Non Tender, No Accessory Muscle Use, No Respiratory Distress, Decreased Breath Sounds Cardiovascular: Regular Rate, Rhythm, No Edema, No Gallop, No JVD, No Murmur, Normal Peripheral Pulses Gastrointestinal: Normal Bowel Sounds, No Organomegaly, No Pulsatile Mass, Non Tender, Soft Back: Normal Inspection, No CVA Tenderness, No Vertebral Tenderness Extremity: Normal Capillary Refill, Normal Inspection, Normal Range of Motion, Non Tender, No Calf Tenderness, No Pedal Edema Neurologic/Psychiatric: Alert, Oriented x3, No Motor/Sensory Deficits, Normal Mood/Affect Skin: Normal Color, Warm/Dry Lymphatic: No Adenopathy Results Results/Procedures Labs Laboratory Tests 01/06/21 20:14 01/07/21 03:04 01/08/21 02:55 Patient resulted labs reviewed. Assessment/Plan Admission Diagnosis Assessment: COVID-19 pneumonia Acute hypoxic respiratory failure Diabetes mellitus Plan: Critical care management appreciated COVID-19 protocol Anticoagulation for DVT prophylaxis Admission Status: Inpatient Order (span 2 midnights) Reason for Inpatient Admission: COVID-19 Diagnosis/Problems Diagnosis/Problems (1) COVID-19 virus infection Status: Acute (2) Hypoxia Status: Acute NEGAR CARRERA DO Jan 07, 2021 05:59
[2021-01-07] MEDS: inSUlin ASPART (NovoLOG) 1 UNIT/0.01 ML (CHARGE PER UNIT) SC SCH ×4 (06:00→20:48)
[2021-01-07] MEDS: NS IV 1000 ML 1,000 ML IV SCH (06:01)
[2021-01-07] MEDS: ENOXAPARIN 40 MG/0.4 ML (LOVENOX) SYR SC SCH ×2 (08:45→20:47)
[2021-01-07] MEDS: dexAMETHasone 6 MG TAB (DECADRON) PO SCH (08:46)
[2021-01-07] MEDS ORDERED: KCL 20 MEQ TAB (K-DUR) PO ONE ×2 (09:00→15:00)
--- NOTE | 2021-01-07 12:31 | Tele-ICU Progress Note ---
Subjective Date Seen by a Provider: Jan 07, 2021 Time Seen by a Provider: 12:31 Sepsis Event Evaluation Height, Weight, BMI Height: '" Weight: lbs. oz. kg; 41.95 BMI Method: Exam Exam Patient acknowledged, consented, and participated in this virtual visit which was conducted using real time audio/video Vital Signs Date Time Temp Pulse Resp B/P (MAP) Pulse Ox O2 Delivery O2 Flow Rate FiO2 01/07/21 11:00 101 31 97 Vapotherm 30.00 60.00 01/07/21 10:48 99 Vapotherm 30.00 40 01/07/21 10:00 79 33 172/84 (113) 98 Vapotherm 30.00 60.00 01/07/21 09:00 87 23 184/95 (124) 98 Vapotherm 30.00 60.00 01/07/21 08:11 37.8 01/07/21 08:00 88 24 183/86 (118) 97 Vapotherm 30.00 60.00 01/07/21 07:00 86 26 169/85 (113) 93 Vapotherm 30.00 60.00 01/07/21 07:00 87 01/07/21 06:56 91 Vapotherm 30.00 80 01/07/21 06:00 79 26 174/87 (116) 96 Vapotherm 30.00 80.00 01/07/21 05:00 89 23 183/91 (121) 98 Vapotherm 30.00 80.00 01/07/21 04:54 Vapotherm 30.00 80.00 01/07/21 04:07 37.0 01/07/21 04:00 94 17 92 Vapotherm 40.00 100.00 01/07/21 04:00 95 Vapotherm 40.00 100 01/07/21 03:00 101 21 169/89 (96) 93 Vapotherm 40.00 100.00 01/07/21 02:31 96 Vapotherm 30.00 80 01/07/21 02:00 80 21 157/85 (100) 99 Vapotherm 40.00 100.00 01/07/21 01:00 78 34 161/87 (107) 99 Vapotherm 40.00 100.00 01/07/21 01:00 78 01/07/21 00:00 82 30 164/100 (110) 100 Vapotherm 40.00 100.00 01/06/21 23:59 97 Vapotherm 40.00 100 01/06/21 23:46 37.8 92 92 44 01/06/21 23:45 85 23 100 Vapotherm 40.00 100.00 01/06/21 23:30 87 22 167/87 (129) 99 Vapotherm 40.00 100.00 01/06/21 23:15 85 18 175/99 (144) 97 Vapotherm 40.00 100.00 01/06/21 23:00 37.8 20 170/76 (107) 96 Vapotherm 40.00 100.00 01/06/21 22:59 87 01/06/21 21:20 95 20 146/77 92 Nasal Cannula 6.00 01/06/21 20:03 92 Nasal Cannula 6.00 92 01/06/21 20:02 37.8 92 20 205/85 (125) 78 Room Air I & O 01/07/21 07:00 Intake Total 250 ml Output Total 950 ml Balance -700 ml Height & Weight Height: '" Weight: lbs. oz. 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 Tested, Other Skin: Warm/Dry Results Lab Laboratory Tests 01/06/21 20:14 01/07/21 03:04 Assessment/Plan Assessment/Plan (Tele-ICU Physician , Progress Note ) Available chart/ vitals / labs / Images reviewed Video assessment done using teleICU camera, rest of exam as per RN Discussed with RN Events overnight : Afebrile hemodynamically stable, no pressors, I/O = neg 700 Drips: ns 125 As per RN exam : Consultants: Hospital course: 01/06 - 60 y/o with SOB, diagnosed with COVID 19 pnaX 10 DAYS HAND UPPER AND BOTTOM LACER ., + diarrhea 01/07 - vapotherm 30L 80% A/P Acute hypoxic resp failure - vapotherm 30L 80% -prone position if able - conservative fluid strategy (aim for even or negative fluid balance - STOP IVF [id number]-7/COVID-19 infection- 10 d HAND UPPER AND BOTTOM LACER -NO Remdesivir- as per local MD ( given sever dz no major clinical benefit ) -Steroids IV - started 01/07 -Hypercoagulable state , will check DDIMER on 01/08 -> lovenox ppx dose , follow D dimer monitor for superimposed bact PNA PCT to check , OFF abx Diabetes Mellitus - ISS , close f/up on steroids need better BS control Lines : , (Central Line Necessity Reviewed) Jacob: OG: Nutrition: po Analgesia: Anxiety/ delirium VTE Prophylaxis: lovenox 40 Stress UlcerProphylaxis: pepcid ( on steroids ) Glycemic Control: + Plans in collaboration with bedside consultants and IM MDs. Discussed with RN to reach out if any questions or concerns A total of 30 minutes of critical care time was devoted to this patient today, required to treat and/or prevent further deterioration of critical care condition ( as above ) . JOSE MADDEN MD Jan 07, 2021 12:31
[2021-01-07] MEDS ORDERED: ACET325T38 PO (13:52)
[2021-01-07] MEDS ORDERED: GLBR5T PO (13:52)
[2021-01-07] MEDS: FAMOTIDINE 20 MG (PEPCID) TABLET PO SCH (20:47)
[2021-01-08] MEDS: ACETAMINOPHEN 325 MG TABLET PO PRN ×4 (00:11→20:12)
[2021-01-08] MEDS: RT-ALBUTEROL INHALER HFA (VENTOLIN HFA) 18 GM IH SCH ×6 (01:59→22:44)
[2021-01-08 03:11] LABS: BASOPHILS % (AUTO) 0 % (0-10); EOSINOPHILS % (AUTO) 0 % (0-10); HEMATOCRIT 33 % (35-52); HEMOGLOBIN 10.6 g/dL (11.5-16.0); LYMPHOCYTES # (AUTO) 0.5 10^3/uL (1.0-4.0); LYMPHOCYTES % (AUTO) 12 % (12-44); MEAN CORPUSCULAR HEMOGLOBIN 29 pg (25-34); MEAN CORPUSCULAR HGB CONC 32 g/dL (32-36); MEAN CORPUSCULAR VOLUME 90 fL (80-99); MEAN PLATELET VOLUME 9.9 fL (9.0-12.2); MONOCYTES # (AUTO) 0.2 10^3/uL (0.0-1.0); MONOCYTES % (AUTO) 6 % (0-12); NEUTROPHILS # (AUTO) 3.1 10^3/uL (1.8-7.8); NEUTROPHILS % (AUTO) 81 % (42-75); PLATELET COUNT 169 10^3/uL (130-400); WHITE BLOOD COUNT 3.8 10^3/uL (4.3-11.0)
[2021-01-08 03:27] LABS: CHLORIDE 107 MMOL/L (98-107); POTASSIUM 3.6 MMOL/L (3.6-5.0); SODIUM 140 MMOL/L (135-145)
[2021-01-08 03:28] LABS: CALCIUM 8.7 MG/DL (8.5-10.1)
[2021-01-08 03:29] LABS: GLUCOSE 138 MG/DL (70-105)
[2021-01-08 03:30] LABS: CARBON DIOXIDE 24 MMOL/L (21-32)
[2021-01-08 03:32] LABS: GFR ESTIMATED > 60; PHOSPHORUS 1.6 MG/DL (2.3-4.7)
[2021-01-08 03:33] LABS: BUN/CREATININE RATIO 13
[2021-01-08] MEDS: POTASSIUM CL 10MEQ/50ML IVPB 50 ML IV SCH (03:58)
[2021-01-08] MEDS: MAGNESIUM 1 GM/100 ML IVPB 100 ML IV SCH (03:58)
[2021-01-08] MEDS: inSUlin ASPART (NovoLOG) 1 UNIT/0.01 ML (CHARGE PER UNIT) SC SCH ×4 (03:58→21:16)
[2021-01-08] MEDS: KCL 20 MEQ TAB (K-DUR) PO SCH (03:58)
--- NOTE | 2021-01-08 05:24 | Progress Note - Hospitalist ---
Subjective HPI/CC On Admission Date Seen by Provider: Jan 08, 2021 Time Seen by Provider: 10:00 CC: SOB and fever with hypoxia from Covid-19 pneumonia HPI: This is a 60yoWF history of DM who presented to the [facility] ER with complaints of SOB. She was found to have Covid-19 pneumonia. She was unvaccinated against Covid-19. At this current time pt is doing well. Her high sugars will be addressed with Levemir 20 units twice daily first dose now and a sliding scale insulin regimen. Appreciate critical care consultation. Subjective/Events-last exam Pt doing really well Maintain on three liters of oxygen, off Vapotherm Sugars are doing much better with high sugars previously Denies any pain Cough and headache continue Review of Systems General: Fatigue, Malaise Pulmonary: Dyspnea Objective Exam Vital Signs Vital Signs Date Time Temp Pulse Resp B/P (MAP) Pulse Ox O2 Delivery O2 Flow Rate FiO2 01/09/21 04:00 95 Nasal Cannula 3.00 01/09/21 03:00 69 27 159/77 (104) 01/08/21 20:15 36.9 01/08/21 08:00 Capillary Refill : Less Than 3 Seconds General Appearance: No Apparent Distress, WD/WN, Chronically ill Respiratory: No Accessory Muscle Use, No Respiratory Distress, Crackles, Decreased Breath Sounds, Rales, Wheezing Cardiovascular: Regular Rate, Rhythm Neurologic/Psychiatric: Alert, Oriented x3 Results/Procedures Lab Laboratory Tests 01/09/21 04:00 Patient resulted labs reviewed. Assessment/Plan Assessment and Plan Assess & Plan/Chief Complaint Assessment: COVID-19 pneumonia Acute hypoxic respiratory failure Diabetes mellitus Plan: Critical care management appreciated COVID-19 protocol Anticoagulation for DVT prophylaxis 01/08/2021: Supportive care May be able to move down to the floor tomorrow Diagnosis/Problems Diagnosis/Problems (1) COVID-19 virus infection Status: Acute (2) Hypoxia Status: Acute MAE NOEL DO Jan 08, 2021 05:24
--- NOTE | 2021-01-08 08:12 | Diagnostic Imaging Report ---
HISTORY: Covid positive, shortness of air. COMPARISON: 01/06/2021 TECHNIQUE: Frontal view of the chest. FINDINGS: There are patchy airspace opacities in the lungs bilaterally. This is greater on the left than the right. There is no pleural effusion or pneumothorax. The cardiac silhouette is normal in size. Overall aeration appears mildly decreased since the prior study. IMPRESSION: 1. Patchy airspace opacities in the lungs, left greater than right, with overall mildly decreased aeration since the prior exam. Dictated by: Dictated on workstation # [id number]
[2021-01-08] MEDS: ENOXAPARIN 40 MG/0.4 ML (LOVENOX) SYR SC SCH (08:37)
[2021-01-08] MEDS: FAMOTIDINE 20 MG (PEPCID) TABLET PO SCH ×2 (08:37→20:12)
[2021-01-08] MEDS: dexAMETHasone 6 MG TAB (DECADRON) PO SCH (08:37)
[2021-01-08] MEDS: glyBURIDE 5 MG (MICRONASE) TAB PO SCH (08:37)
[2021-01-08] MEDS ORDERED: KCL 20 MEQ TAB (K-DUR) PO ONE (09:00)
--- NOTE | 2021-01-08 10:56 | Tele-ICU Progress Note ---
Subjective Date Seen by a Provider: Jan 08, 2021 Time Seen by a Provider: 10:55 Sepsis Event Evaluation Height, Weight, BMI Height: '" Weight: lbs. oz. kg; 41.95 BMI Method: Exam Exam Patient acknowledged, consented, and participated in this virtual visit which was conducted using real time audio/video Vital Signs Date Time Temp Pulse Resp B/P (MAP) Pulse Ox O2 Delivery O2 Flow Rate FiO2 01/08/21 09:00 92 29 165/98 (120) 93 Nasal Cannula 2.00 01/08/21 08:49 90 3.00 01/08/21 08:00 95 Vapotherm 25.00 60 01/08/21 08:00 80 30 168/80 (109) 90 Nasal Cannula 2.00 01/08/21 07:50 37.0 01/08/21 07:00 78 31 175/92 (119) 93 Nasal Cannula 2.00 01/08/21 06:53 62 25 93 Nasal Cannula 2.00 01/08/21 06:51 94 2.00 01/08/21 06:31 78 01/08/21 06:00 73 27 174/84 (114) 95 Nasal Cannula 3.00 01/08/21 05:46 Nasal Cannula 3.00 01/08/21 05:00 77 27 167/94 (118) 95 Vapotherm 25.00 60.00 01/08/21 04:00 95 Vapotherm 25.00 60 01/08/21 04:00 75 30 160/82 (105) 97 Vapotherm 25.00 60.00 01/08/21 03:08 94 18 180/100 (126) 91 Vapotherm 25.00 60.00 01/08/21 02:00 74 24 142/75 (86) 93 Vapotherm 25.00 60.00 01/08/21 01:59 94 Vapotherm 25.00 60 01/08/21 01:00 77 01/08/21 01:00 77 29 141/75 (93) 96 Vapotherm 25.00 60.00 01/08/21 00:11 Vapotherm 25.00 60.00 01/08/21 00:00 84 147/74 (102) 86 Vapotherm 20.00 40.00 01/07/21 23:59 95 Vapotherm 25.00 60 01/07/21 23:00 84 153/74 (100) 93 Vapotherm 20.00 40.00 01/07/21 22:18 91 Vapotherm 20.00 50 01/07/21 22:00 88 27 177/82 (113) 91 Vapotherm 20.00 40.00 01/07/21 21:00 85 27 174/94 (120) 94 Vapotherm 20.00 40.00 01/07/21 20:47 94 30 183/94 (123) 94 Vapotherm 20.00 40.00 01/07/21 20:00 77 24 201/95 (130) 95 Vapotherm 20.00 40.00 01/07/21 20:00 95 Vapotherm 20.00 40 01/07/21 20:00 Vapotherm 20.00 40.00 01/07/21 19:48 37.1 01/07/21 19:16 97 31 188/105 (132) 91 Vapotherm 30.00 60.00 01/07/21 19:00 101 01/07/21 19:00 101 30 204/96 (132) 88 Vapotherm 30.00 60.00 01/07/21 18:49 94 Vapotherm 20.00 50 01/07/21 18:00 91 31 183/79 (118) 90 Vapotherm 30.00 60.00 01/07/21 17:00 94 14 151/80 (92) 97 Vapotherm 30.00 60.00 01/07/21 16:06 89 22 175/81 (104) 89 Vapotherm 30.00 60.00 01/07/21 16:00 36.9 01/07/21 16:00 95 Vapotherm 20.00 40 01/07/21 14:32 96 Vapotherm 20.00 40 01/07/21 14:00 91 27 91 Vapotherm 30.00 60.00 01/07/21 13:00 87 01/07/21 13:00 90 35 94 Vapotherm 30.00 60.00 01/07/21 12:00 95 Vapotherm 30.00 60 01/07/21 12:00 95 33 92 Vapotherm 30.00 60.00 01/07/21 11:00 101 31 97 Vapotherm 30.00 60.00 I & O 01/08/21 07:00 Intake Total 2075 ml Output Total 900 ml Balance 1175 ml Height & Weight Height: '" Weight: lbs. oz. kg; 41.95 BMI Method: General Appearance: Anxious, Mild Distress HEENT: PERRL/EOMI, Normal ENT Inspection, Pharynx Normal, Moist Mucous Membranes Neck: Full Range of Motion, Normal Inspection, Non Tender Respiratory: Chest Non Tender, No Accessory Muscle Use, No Respiratory Distress, Decreased Breath Sounds Cardiovascular: Regular Rate, Rhythm, No Edema, No Gallop, No JVD, No Murmur, Normal Peripheral Pulses Capillary Refill: Less Than 3 Seconds Extremity: Normal Capillary Refill, Normal Inspection, Normal Range of Motion, Non Tender, No Calf Tenderness, No Pedal Edema Neurologic/Psychiatric: Alert, Oriented x3, No Motor/Sensory Deficits, Normal Mood/Affect Skin: Normal Color, Warm/Dry Lymphatic: No Adenopathy Results Lab Laboratory Tests 01/06/21 20:14 01/07/21 03:04 01/08/21 02:55 Assessment/Plan Assessment/Plan (Tele-ICU Physician , Progress Note ) Available chart/ vitals / labs / Images reviewed Video assessment done using teleICU camera, rest of exam as per RN Discussed with RN Events overnight : Afebrile hemodynamically stable, no pressors, I/O = even Drips: As per RN exam : Consultants: Hospital course: 01/06 - 60 y/o with SOB, diagnosed with COVID 19 pnaX 10 DAYS [facility] ., + diarrhea 01/07 - vapotherm 30L 80% 01/08 - 4 l o2 A/P Acute hypoxic resp failure - vapotherm 30L 80% - to 2 l NC today -prone position if able - conservative fluid strategy (aim for even or negative fluid balance - off IVF , good UO [id number]/COVID-19 infection- 10 d MONUMENT [facility]ON -NO Remdesivir- as per local MD ( given severe dz no major clinical benefit ) -Steroids IV - started 01/07 -Hypercoagulable state , DDIMER on 01/08 =3 -> lovenox ppx dose 50 monitor for superimposed bact PNA PCT bordrline 01/08 , OFF abx Diabetes Mellitus - ISS , close f/up on steroids need better BS control Lines : , (Central Line Necessity Reviewed) Jacob: OG: Nutrition: po Analgesia: Anxiety/ delirium VTE Prophylaxis: lovenox 40 Stress UlcerProphylaxis: pepcid ( on steroids ) Glycemic Control: + Plans in collaboration with bedside consultants and IM MDs. Discussed with RN to reach out if any questions or concerns A total of 30 minutes of critical care time was devoted to this patient today, required to treat and/or prevent further deterioration of critical care condition ( as above ) . JOSE MADDEN MD Jan 08, 2021 10:56
[2021-01-08] MEDS: ENOXAPARIN 60 MG/0.6 ML (LOVENOX) SYR SC SCH (20:12)
[2021-01-08] MEDS: guaiFENesin SYRUP 100 MG/5 ML 10 ML (ROBITUSSIN SF) PO PRN (20:12)
[2021-01-09] MEDS: RT-ALBUTEROL INHALER HFA (VENTOLIN HFA) 18 GM IH SCH ×6 (01:50→22:45)
[2021-01-09 04:10] LABS: BASOPHILS % (AUTO) 0 % (0-10); EOSINOPHILS % (AUTO) 0 % (0-10); HEMATOCRIT 35 % (35-52); HEMOGLOBIN 11.4 g/dL (11.5-16.0); LYMPHOCYTES # (AUTO) 0.5 10^3/uL (1.0-4.0); LYMPHOCYTES % (AUTO) 9 % (12-44); MEAN CORPUSCULAR HEMOGLOBIN 29 pg (25-34); MEAN CORPUSCULAR HGB CONC 32 g/dL (32-36); MEAN CORPUSCULAR VOLUME 91 fL (80-99); MEAN PLATELET VOLUME 10.2 fL (9.0-12.2); MONOCYTES # (AUTO) 0.3 10^3/uL (0.0-1.0); MONOCYTES % (AUTO) 5 % (0-12); NEUTROPHILS # (AUTO) 4.7 10^3/uL (1.8-7.8); NEUTROPHILS % (AUTO) 85 % (42-75); PLATELET COUNT 219 10^3/uL (130-400); WHITE BLOOD COUNT 5.5 10^3/uL (4.3-11.0)
[2021-01-09 04:30] LABS: CHLORIDE 106 MMOL/L (98-107); POTASSIUM 3.8 MMOL/L (3.6-5.0); SODIUM 140 MMOL/L (135-145)
[2021-01-09 04:32] LABS: CALCIUM 8.7 MG/DL (8.5-10.1); GLUCOSE 132 MG/DL (70-105)
[2021-01-09 04:34] LABS: CARBON DIOXIDE 24 MMOL/L (21-32)
[2021-01-09 04:36] LABS: CREATININE SERUM 0.62 MG/DL (0.60-1.30); GFR ESTIMATED > 60; PHOSPHORUS 2.1 MG/DL (2.3-4.7)
[2021-01-09 04:37] LABS: BUN/CREATININE RATIO 19
[2021-01-09 04:38] LABS: MAGNESIUM 1.8 MG/DL (1.6-2.4)
[2021-01-09] MEDS: POTASSIUM CL 10MEQ/50ML IVPB 50 ML IV SCH (04:41)
[2021-01-09] MEDS: KCL 20 MEQ TAB (K-DUR) PO SCH (04:41)
[2021-01-09] MEDS: inSUlin ASPART (NovoLOG) 1 UNIT/0.01 ML (CHARGE PER UNIT) SC SCH (04:41)
[2021-01-09] MEDS: MAGNESIUM 1 GM/100 ML IVPB 100 ML IV SCH (04:41)
[2021-01-09] MEDS: guaiFENesin SYRUP 100 MG/5 ML 10 ML (ROBITUSSIN SF) PO PRN (05:36)
--- NOTE | 2021-01-09 06:09 | Progress Note - Hospitalist ---
Subjective HPI/CC On Admission Date Seen by Provider: Jan 09, 2021 Time Seen by Provider: 10:00 CC: SOB and fever with hypoxia from Covid-19 pneumonia HPI: This is a 60yoWF history of DM who presented to the [facility] ER with complaints of SOB. She was found to have Covid-19 pneumonia. She was unvaccinate d against Covid-19. At this current time pt is doing well. Her high sugars will be addressed with Levemir 20 units twice daily first dose now and a sliding scale insulin regimen. Appreciate critical care consultation. Subjective/Events-last exam Pt doing pretty well Currently on six liters and she had a coughing spell but she is usually on three Transferring to fourth floor Refusing Lovenox but encouraged to do that Blood sugars are much improved Review of Systems General: Fatigue, Malaise Pulmonary: Dyspnea Objective Exam Vital Signs Vital Signs Date Time Temp Pulse Resp B/P (MAP) Pulse Ox O2 Delivery O2 Flow Rate FiO2 01/10/21 04:19 36.8 73 20 128/62 (84) 93 Nasal Cannula 3.00 01/08/21 08:00 Capillary Refill : Less Than 3 Seconds General Appearance: No Apparent Distress, WD/WN, Chronically ill Respiratory: Lungs Clear, No Accessory Muscle Use, No Respiratory Distress, Decreased Breath Sounds Cardiovascular: Regular Rate, Rhythm Neurologic/Psychiatric: Alert, Oriented x3, No Motor/Sensory Deficits, Normal Mood/Affect Results/Procedures Lab Patient resulted labs reviewed. Assessment/Plan Assessment and Plan Assess & Plan/Chief Complaint Assessment: COVID-19 pneumonia Acute hypoxic respiratory failure Diabetes mellitus Plan: Critical care management appreciated COVID-19 protocol Anticoagulation for DVT prophylaxis 01/08/2021: Supportive care May be able to move down to the floor tomorrow 01/09/2021: Moved to fourth floor Hypertension management Diagnosis/Problems Diagnosis/Problems (1) COVID-19 virus infection Status: Acute (2) Hypoxia Status: Acute MAE NOEL DO Jan 09, 2021 06:09
--- NOTE | 2021-01-09 08:18 | Tele-ICU Progress Note ---
Subjective Date Seen by a Provider: Jan 09, 2021 Time Seen by a Provider: 11:05 Subjective/Events-last exam 60 yo F admitted 01/06 for + COVID PNA, was on vapotherm 30 l FiO2 80% was on NC 3 lpm, now on 6 lpm with SpO2 in 80's, Not working antione to breathe, Not coughing much 01/08 CXR shows bilateral patchy opacities, on Decadron, off remdesivir D dimer up at 3.16 on lovenox 50 bid, refusing Lovenox No Jacob or central line Review of Systems Neurological: Other (on vent) Sepsis Event Evaluation Height, Weight, BMI Height: '" Weight: lbs. oz. kg; 41.95 BMI Method: Exam Exam Patient acknowledged, consented, and participated in this virtual visit which was conducted using real time audio/video Vital Signs Date Time Temp Pulse Resp B/P (MAP) Pulse Ox O2 Delivery O2 Flow Rate FiO2 01/09/21 06:47 94 Nasal Cannula 3.00 01/09/21 06:00 70 29 166/81 (109) 93 Nasal Cannula 2.00 01/09/21 05:00 79 20 171/83 (109) 93 Nasal Cannula 2.00 01/09/21 04:00 95 Nasal Cannula 3.00 01/09/21 04:00 72 26 168/86 (112) 90 Nasal Cannula 2.00 01/09/21 04:00 36.8 01/09/21 03:00 69 27 159/77 (104) 91 Nasal Cannula 2.00 01/09/21 02:00 76 31 166/84 (100) 92 Nasal Cannula 2.00 01/09/21 01:50 93 3.00 01/09/21 01:00 72 32 164/76 (113) 92 Nasal Cannula 2.00 01/09/21 01:00 72 01/09/21 00:00 61 20 164/81 (102) 95 Nasal Cannula 2.00 01/08/21 23:59 95 Nasal Cannula 3.00 01/08/21 23:00 79 33 151/77 (101) 94 Nasal Cannula 2.00 01/08/21 22:44 96 3.00 01/08/21 22:00 79 29 177/89 (118) 96 Nasal Cannula 2.00 01/08/21 21:00 83 28 163/85 (116) 94 Nasal Cannula 2.00 01/08/21 20:15 36.9 01/08/21 20:04 89 160/77 (108) 88 Nasal Cannula 2.00 01/08/21 20:00 95 Nasal Cannula 3.00 01/08/21 19:11 94 3.00 01/08/21 19:00 90 24 93 Nasal Cannula 2.00 01/08/21 19:00 90 01/08/21 18:00 77 24 156/93 (114) 93 Nasal Cannula 2.00 01/08/21 17:00 73 28 157/82 (107) 95 Nasal Cannula 2.00 01/08/21 16:00 37.0 01/08/21 16:00 82 31 145/76 (99) 95 Nasal Cannula 2.00 01/08/21 16:00 95 Nasal Cannula 3.00 01/08/21 15:00 86 25 135/70 (91) 93 Nasal Cannula 2.00 01/08/21 14:37 96 3.00 01/08/21 14:00 86 15 133/67 (89) 95 Nasal Cannula 2.00 01/08/21 13:00 80 31 128/93 (105) 96 Nasal Cannula 2.00 01/08/21 12:42 74 01/08/21 12:19 96 Nasal Cannula 3.00 01/08/21 12:00 76 28 159/83 (108) 95 Nasal Cannula 2.00 01/08/21 11:56 36.9 01/08/21 11:00 87 39 165/82 (109) 95 Nasal Cannula 2.00 01/08/21 10:00 91 30 143/67 (92) 94 Nasal Cannula 2.00 01/08/21 09:00 92 29 165/98 (120) 93 Nasal Cannula 2.00 01/08/21 08:49 90 3.00 I & O 01/09/21 07:00 Intake Total 2250 ml Balance 2250 ml Height & Weight Height: '" Weight: lbs. oz. kg; 41.95 BMI Method: General Appearance: No Apparent Distress, WD/WN, Chronically ill HEENT: PERRL/EOMI, Normal ENT Inspection, Pharynx Normal, Moist Mucous Membranes Neck: Full Range of Motion, Normal Inspection, Non Tender Respiratory: Lungs Clear, No Accessory Muscle Use, No Respiratory Distress, Crackles, Decreased Breath Sounds, Rales, Wheezing Cardiovascular: Regular Rate, Rhythm Capillary Refill: Less Than 3 Seconds Gastrointestinal: normal bowel sounds, non tender, soft Extremity: Normal Capillary Refill, Normal Inspection, Normal Range of Motion, Non Tender, No Calf Tenderness, No Pedal Edema Neurologic/Psychiatric: Alert, Oriented x3 Skin: Normal Color, Warm/Dry Lymphatic: No Adenopathy Results Lab Laboratory Tests 01/08/21 02:55 01/09/21 04:00 Assessment/Plan Assessment/Plan COVID PNA with borderline oxygenation, continue same meds, and Lovenox Has to stay in MICU due to borderline oxygenation morbid obesity DM glu today better at 138, on insulin detimer 20 bid and aspart 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
[2021-01-09] MEDS: dexAMETHasone 6 MG TAB (DECADRON) PO SCH (08:22)
[2021-01-09] MEDS: glyBURIDE 5 MG (MICRONASE) TAB PO SCH (08:22)
[2021-01-09] MEDS: FAMOTIDINE 20 MG (PEPCID) TABLET PO SCH ×2 (08:23→20:51)
[2021-01-09] MEDS: ENOXAPARIN 60 MG/0.6 ML (LOVENOX) SYR SC SCH ×2 (09:00→20:51)
[2021-01-09] MEDS: ACETAMINOPHEN 325 MG TABLET PO PRN ×3 (09:13→20:57)
[2021-01-09] MEDS ORDERED: amLODIPine 5 MG (NORVASC) TAB PO NR (17:30)
[2021-01-09] MEDS ORDERED: hydrALAZINE (APESOLINE) 20 MG/ML VIAL IV PRN (17:45)
[2021-01-09] MEDS ORDERED: cloNIDine 0.1 MG (CATAPRES) TAB PO PRN (17:45)
[2021-01-09] MEDS: amLODIPine 5 MG (NORVASC) TAB PO SCH (20:51)
[2021-01-10] MEDS: RT-ALBUTEROL INHALER HFA (VENTOLIN HFA) 18 GM IH SCH ×6 (02:33→21:45)
[2021-01-10] MEDS: ACETAMINOPHEN 325 MG TABLET PO PRN ×4 (04:45→21:26)
--- NOTE | 2021-01-10 06:27 | Progress Note - Hospitalist ---
Subjective HPI/CC On Admission Date Seen by Provider: Jan 10, 2021 Time Seen by Provider: 10:30 CC: SOB and fever with hypoxia from Covid-19 pneumonia HPI: This is a 60yoWF history of DM who presented to the [facility] ER with complaints of SOB. She was found to have Covid-19 pneumonia. She was unvaccinated against Covid-19. At this current time pt is doing well. Her high sugars will be addressed with Levemir 20 units twice daily first dose now and a sliding scale insulin regimen. Appreciate critical care consultation. Subjective/Events-last exam Pt doing a lot better today Wants to go home soon Will do home O2 evaluation Potassium 3.1 will replace BP much better with medications Review of Systems General: Fatigue, Malaise Objective Exam Vital Signs Vital Signs Date Time Temp Pulse Resp B/P (MAP) Pulse Ox O2 Delivery O2 Flow Rate FiO2 01/11/21 03:54 36.4 80 18 171/76 (107) 90 Nasal Cannula 3.00 01/10/21 10:52 32 Capillary Refill : Less Than 3 Seconds General Appearance: No Apparent Distress, WD/WN, Chronically ill Respiratory: Lungs Clear, Normal Breath Sounds Cardiovascular: Regular Rate, Rhythm Neurologic/Psychiatric: Alert, Oriented x3 Results/Procedures Lab Laboratory Tests 01/10/21 06:57 Patient resulted labs reviewed. Assessment/Plan Assessment and Plan Assess & Plan/Chief Complaint Assessment: COVID-19 pneumonia Acute hypoxic respiratory failure Diabetes mellitus Plan: Critical care management appreciated COVID-19 protocol Anticoagulation for DVT prophylaxis 01/08/2021: Supportive care May be able to move down to the floor tomorrow 01/09/2021: Moved to fourth floor Hypertension management 01/10/2021: Discharge home tomorrow if nighttime no issues Critical Care Critically Ill Patient Diagnosis/Problems Diagnosis/Problems (1) COVID-19 virus infection Status: Acute (2) Hypoxia Status: Acute MAE NOEL DO Jan 10, 2021 06:27
[2021-01-10 07:15] LABS: BASOPHILS % (AUTO) 0 % (0-10); EOSINOPHILS % (AUTO) 0 % (0-10); HEMATOCRIT 36 % (35-52); HEMOGLOBIN 11.8 g/dL (11.5-16.0); LYMPHOCYTES # (AUTO) 0.8 10^3/uL (1.0-4.0); LYMPHOCYTES % (AUTO) 12 % (12-44); MEAN CORPUSCULAR HEMOGLOBIN 29 pg (25-34); MEAN CORPUSCULAR HGB CONC 33 g/dL (32-36); MEAN CORPUSCULAR VOLUME 89 fL (80-99); MONOCYTES # (AUTO) 0.5 10^3/uL (0.0-1.0); MONOCYTES % (AUTO) 8 % (0-12); NEUTROPHILS # (AUTO) 5.1 10^3/uL (1.8-7.8); NEUTROPHILS % (AUTO) 79 % (42-75); PLATELET COUNT 193 10^3/uL (130-400); WHITE BLOOD COUNT 6.4 10^3/uL (4.3-11.0)
[2021-01-10 07:38] LABS: ALBUMIN 3.1 GM/DL (3.2-4.5); BILIRUBIN,TOTAL 0.5 MG/DL (0.1-1.0); CALCIUM 8.6 MG/DL (8.5-10.1); CREATININE SERUM 0.62 MG/DL (0.60-1.30); POTASSIUM 3.2 MMOL/L (3.6-5.0); TOTAL PROTEIN 6.9 GM/DL (6.4-8.2)
--- NOTE | 2021-01-10 07:48 | Diagnostic Imaging Report ---
EXAMINATION: Chest 1 view HISTORY: Pneumonia COMPARISON: 01/08/2021 FINDINGS: Stable enlargement cardiac silhouette with prominence of the pulmonary vasculature. Patchy airspace opacities are seen within the lungs greatest in the mid and lower lungs and left lung base. No pleural effusion or pneumothorax. The osseous structures are intact. IMPRESSION: 1. Stable patchy airspace opacities throughout the mid and lower lungs compatible with multifocal pneumonia. Dictated by: Dictated on workstation # [id number]
[2021-01-10] MEDS ORDERED: KCL 20 MEQ TAB (K-DUR) PO ONE ×2 (09:30→11:30)
[2021-01-10] MEDS ORDERED: SALINE NASAL SPRAY (OCEAN) 45 ML BTL PRN (09:30)
[2021-01-10] MEDS: glyBURIDE 5 MG (MICRONASE) TAB PO SCH (09:41)
[2021-01-10] MEDS: dexAMETHasone 6 MG TAB (DECADRON) PO SCH (09:42)
[2021-01-10] MEDS: amLODIPine 5 MG (NORVASC) TAB PO SCH ×2 (09:42→21:18)
[2021-01-10] MEDS: ENOXAPARIN 60 MG/0.6 ML (LOVENOX) SYR SC SCH ×3 (09:42→21:26)
[2021-01-10] MEDS: FAMOTIDINE 20 MG (PEPCID) TABLET PO SCH ×2 (09:42→21:18)
[2021-01-10 10:52] VITALS: BP 151/69
[2021-01-11] MEDS: RT-ALBUTEROL INHALER HFA (VENTOLIN HFA) 18 GM IH SCH ×4 (02:27→13:44)
[2021-01-11] MEDS: ACETAMINOPHEN 325 MG TABLET PO PRN ×2 (03:56→09:34)
--- NOTE | 2021-01-11 06:12 | Progress Note - Hospitalist ---
Subjective HPI/CC On Admission Date Seen by Provider: Jan 11, 2021 Time Seen by Provider: 10:00 CC: SOB and fever with hypoxia from Covid-19 pneumonia HPI: This is a 60yoWF history of DM who presented to the [facility] ER with complaints of SOB. She was found to have Covid-19 pneumonia. She was unvaccinated against Covid-19. At this current time pt is doing well. Her high sugars will be addressed with Levemir 20 units twice daily first dose now and a sliding scale insulin regimen. Appreciate critical care consultation. Subjective/Events-last exam See discharge summary Objective Exam Vital Signs Vital Signs Date Time Temp Pulse Resp B/P (MAP) Pulse Ox O2 Delivery O2 Flow Rate FiO2 01/11/21 16:11 35.7 99 20 146/71 93 Room Air 2.00 92 Capillary Refill : Less Than 3 Seconds General Appearance: No Apparent Distress, WD/WN, Chronically ill Results/Procedures Lab Laboratory Tests 01/11/21 06:17 Patient resulted labs reviewed. Assessment/Plan Assessment and Plan Assess & Plan/Chief Complaint Assessment: COVID-19 pneumonia Acute hypoxic respiratory failure Diabetes mellitus Plan: Critical care management appreciated COVID-19 protocol Anticoagulation for DVT prophylaxis 01/08/2021: Supportive care May be able to move down to the floor tomorrow 01/09/2021: Moved to fourth floor Hypertension management 01/10/2021: Discharge home tomorrow if nighttime no issues 01/11/2021: Discharge home Critical Care Critically Ill Patient Diagnosis/Problems Diagnosis/Problems (1) COVID-19 virus infection Status: Acute (2) Hypoxia Status: Acute MAE NOEL DO Jan 11, 2021 06:12
[2021-01-11 06:25] LABS: BASOPHILS % (AUTO) 0 % (0-10); EOSINOPHILS % (AUTO) 0 % (0-10); HEMATOCRIT 38 % (35-52); HEMOGLOBIN 11.7 g/dL (11.5-16.0); LYMPHOCYTES # (AUTO) 0.8 10^3/uL (1.0-4.0); LYMPHOCYTES % (AUTO) 11 % (12-44); MEAN CORPUSCULAR HEMOGLOBIN 29 pg (25-34); MEAN CORPUSCULAR HGB CONC 31 g/dL (32-36); MEAN CORPUSCULAR VOLUME 92 fL (80-99); MEAN PLATELET VOLUME 10.1 fL (9.0-12.2); MONOCYTES # (AUTO) 0.7 10^3/uL (0.0-1.0); MONOCYTES % (AUTO) 9 % (0-12); NEUTROPHILS # (AUTO) 5.7 10^3/uL (1.8-7.8); NEUTROPHILS % (AUTO) 79 % (42-75); PLATELET COUNT 165 10^3/uL (130-400); WHITE BLOOD COUNT 7.3 10^3/uL (4.3-11.0)
[2021-01-11 06:32] LABS: ALBUMIN 3.1 GM/DL (3.2-4.5); POTASSIUM 3.7 MMOL/L (3.6-5.0)
[2021-01-11 06:34] LABS: CALCIUM 8.6 MG/DL (8.5-10.1)
[2021-01-11 06:35] LABS: TOTAL PROTEIN 6.9 GM/DL (6.4-8.2)
[2021-01-11 06:37] LABS: BILIRUBIN,TOTAL 0.4 MG/DL (0.1-1.0)
[2021-01-11 06:38] LABS: CREATININE SERUM 0.59 MG/DL (0.60-1.30)
[2021-01-11] MEDS ORDERED: KCL 20 MEQ TAB (K-DUR) PO SCH (07:00)
[2021-01-11] MEDS: dexAMETHasone 6 MG TAB (DECADRON) PO SCH (08:52)
[2021-01-11] MEDS: FAMOTIDINE 20 MG (PEPCID) TABLET PO SCH (08:52)
[2021-01-11] MEDS: amLODIPine 5 MG (NORVASC) TAB PO SCH (08:52)
[2021-01-11] MEDS: glyBURIDE 5 MG (MICRONASE) TAB PO SCH (08:52)
[2021-01-11] MEDS: ENOXAPARIN 60 MG/0.6 ML (LOVENOX) SYR SC SCH (08:57)
[2021-01-11] MEDS ORDERED: FAMO20TA5 PO (11:57)
[2021-01-11] MEDS ORDERED: ASPI-1238 PO (11:57)
[2021-01-11] MEDS ORDERED: AMLO-250 PO (11:57)
[2021-01-11] MEDS ORDERED: DEXA6TAB PO (11:57)
[2021-01-11] MEDS ORDERED: ALBU18HF2 IH (11:57)
--- NOTE | 2021-01-11 11:58 | Discharge Summary ---
Discharge Summary Hospital Course Was the Problem List Reviewed?: Yes Problems/Dx: (1) COVID-19 virus infection Status: Acute (2) Hypoxia Status: Acute Hospital Course Date of Admission: Jan 06, 2021 at 22:49 Admission Diagnosis : Family Physician/Provider: Kain Dodge MD Date of Discharge: 01/11/21 Discharge Diagnosis: COVID-19 pneumonia, acute hypoxic respiratory failure, hypertension, diabetes Hospital Course: Hospital course: Pt had a complicated hospital course, mostly in the ICU when she was admitted for Covid-19 infection, unvaccinated but severe acute hypoxic respiratory failure. Pt required Decadron and Insulin and antihypertensive medication and oxygen supplementation. She overall did very well and actually regained enough function to actually be discharged on two liters of oxygen continuous. Labs and Pending Lab Test: Laboratory Tests 01/10/21 16:19: Glucometer 309H 01/10/21 20:03: Glucometer 398H 01/11/21 06:17: White Blood Count 7.3, Red Blood Count 4.09, Hemoglobin 11.7, Hematocrit 38, Me an Corpuscular Volume 92, Mean Corpuscular Hemoglobin 29, Mean Corpuscular Hemoglobin Concent 31L, Red Cell Distribution Width 12.7, Platelet Count 165, Mean Platelet Volume 10.1, Immature Granulocyte % (Auto) 1, Neutrophils (%) (Auto) 79H, Lymphocytes (%) (Auto) 11L, Monocytes (%) (Auto) 9, Eosinophils (%) (Auto) 0, Basophils (%) (Auto) 0, Neutrophils # (Auto) 5.7, Lymphocytes # (Auto) 0.8L, Monocytes # (Auto) 0.7, Eosinophils # (Auto) 0.0, Basophils # (Auto) 0.0, Immature Granulocyte # (Auto) 0.1, Sodium Level 139, Potassium Level 3.7, Chloride Level 106, Carbon Dioxide Level 23, Anion Gap 10, Blood Urea Nitrogen 13, Creatinine 0.59L, Estimat Glomerular Filtration Rate 105, BUN/Creatinine Ratio 22, Glucose Level 142H, Calcium Level 8.6, Corrected Calcium 9.3, Total Bilirubin 0.4, Aspartate Amino Transf (AST/SGOT) 21, Alanine Aminotransferase (ALT/SGPT) 12, Alkaline Phosphatase 47, Total Protein 6.9, Albumin 3.1L Home Meds Active Reported Tylenol (Acetaminophen) 325 Mg Tablet 650 Mg PO Q6H PRN Glyburide 5 Mg Tablet 5 Mg PO DAILY Assessment/Pt Instructions [facility] in 1 week Discharge Planning: <30 minutes discharge planning Discharge Instructions Discharge Diet: ADA Diet Discharge Physical Examination Vital Signs Vital Signs Date Time Temp Pulse Resp B/P (MAP) Pulse Ox O2 Delivery O2 Flow Rate FiO2 01/11/21 09:34 90 Nasal Cannula 2.00 01/11/21 08:55 35.7 79 20 146/71 (96) 01/10/21 10:52 32 General Appearance: No Apparent Distress, WD/WN, Chronically ill Respiratory: Lungs Clear, Normal Breath Sounds Allergies: Coded Allergies: No Known Drug Allergies (Unverified , 01/08/21) Discharge Summary Date of Admission Jan 06, 2021 at 22:49 Date of Discharge Discharge Date: Jan 11, 2021 Admission Diagnosis Assessment: COVID-19 pneumonia Acute hypoxic respiratory failure Diabetes mellitus Plan: Critical care management appreciated COVID-19 protocol Anticoagulation for DVT prophylaxis Discharge Diagnosis Assessment: COVID-19 pneumonia Acute hypoxic respiratory failure Diabetes mellitus Plan: Critical care management appreciated COVID-19 protocol Anticoagulation for DVT prophylaxis 01/08/2021: Supportive care May be able to move down to the floor tomorrow 01/09/2021: Moved to fourth floor Hypertension management 01/10/2021: Discharge home tomorrow if nighttime no issues (1) COVID-19 virus infection Status: Acute (2) Hypoxia Status: Acute MAE NOEL DO Jan 11, 2021 11:58
[2021-01-11 16:11] VITALS: BP 146/71
== END 2021-01-11 16:13 | disposition home or self-care (01) | DRG 177 ==
LOC: EDUNIT# 19:56 → ER FS 20:00 → ICU 22:49 → 4TH 01-09 13:05 → ICU 01-09 13:05 → 4TH 01-09 13:59
PROVIDERS: ADMIT Internal Medicine; ATTEND Internal Medicine
DX: U07.1 COVID-19 (principal); J12.82 Pneumonia due to coronavirus disease 2019; J96.01 Acute respiratory failure with hypoxia; J15.9 Unspecified bacterial pneumonia; D68.59 Other primary thrombophilia; I10 Essential (primary) hypertension; E11.9 Type 2 diabetes mellitus without complications; Z87.891 Personal history of nicotine dependence; Z73.0 Burn-out
CPT/HCPCS: 36415; 71045; 80048; 80053; 82805; 82947; 83735; 84100; 84145; 84484; 85025; 85379; 85610; 85730; 86141; 93005; 93041; 94640; 94760; 94761; 99291

== ENCOUNTER → 2021-07-22 | Outpatient (CLI) | payer BC ==
[~2021-07-22] MED LIST changes: +ACET325T38 PO; +ALBU18HF2 IH; +AMLO-250 PO; +ASPI-1238 PO; -CATHETER FLUSH 10 ML SYR IV PRN; +DEXA6TAB PO; +FAMO20TA5 PO; -GADOBUTROL 7.5 MMOL/7.5 ML (GADAVIST) VIAL IV ONE; +GLBR5T PO; -IOHEXOL 300 MG/ML 50 ML (OMNIPAQUE 300) VIAL IV ONE
--- NOTE | 2021-07-22 13:51 | Diagnostic Imaging Report ---
INDICATION: Pain. EXAMINATION: Left hand 07/22/2021 FINDINGS: 3 views of the hand. There are no fractures or dislocations. There are degenerative changes within the interphalangeal joint spaces of all fingers. Soft tissues appear unremarkable. Chronic findings seen at the ulnar styloid process. IMPRESSION: Chronic changes. No acute process. Dictated by: Dictated on workstation # [id number]
== END ==
LOC: RAD FS 13:10
PROVIDERS: ATTEND Nurse Practitioner
DX: M19.042 Primary osteoarthritis, left hand (principal)
CPT/HCPCS: 73130

== ENCOUNTER → 2021-08-12 | Outpatient (CLI) | payer BC ==
--- NOTE | 2021-08-12 12:11 | Diagnostic Imaging Report ---
EXAMINATION: Left wrist radiographs, 4 views. COMPARISON: June 28, 2020. MRI left wrist July 04, 2020. HISTORY: 60-year-old female, history of displaced triquetral fracture. FINDINGS: There is a chronic appearing irregularity of the ulnar styloid. There is no identified acute fracture. Bone mineralization and alignment appear unremarkable. The joint spaces are well preserved. There is no identified radiopaque foreign body. IMPRESSION: 1. Chronic appearing irregularity of the ulnar styloid. Differential considerations would include reactive osseous changes relating to extensor carpi ulnaris tendinopathy and/or tenosynovitis versus sequela of remote prior injury. 2. Additional radiographic evaluation of the left wrist is unremarkable. Dictated by: Dictated on workstation # [id number]
== END ==
LOC: RAD FS 09:51
PROVIDERS: ATTEND Nurse Practitioner
DX: S62.112A Displaced fracture of triquetrum [cuneiform] bone, left wrist, initial encounter for closed fracture (principal)
CPT/HCPCS: 73110